=== PATIENT | female | born 1945 | race Caucasian/White ===

== ENCOUNTER 2020-12-06 16:52 | Outpatient (CLI) | payer MEDICARE, OTHER, SELFPAY ==
[2020-12-06 17:28] LABS: Basophils % 0.4 %; Eosinophils # 0.2 10^3/uL (0.0-0.8); Eosinophils % 2.1 %; Hematocrit 42.6 % (37.0-47.0); Lymphocytes # 3.3 10^3/uL (0.8-4.8); Lymphocytes % 30.1 %; Mean Corpuscular HGB Conc 32.9 g/dL (30.0-36.0); Mean Corpuscular Hemoglobin 30.6 pg (28.0-34.0); Mean Corpuscular Volume 93.2 fl (81-99); Mean Platelet Volume 11.2 fL (7.4-10.4); Monocytes # 0.9 10^3/uL (0.2-0.9); Monocytes % 8.1 %; Neutrophils # 6.53 10^3/uL (1.8-7.7); Nucleated Red Blood Cells % 0 %; Platelet Count 290 10^3/cmm (130-400); Red Blood Count 4.57 10^6/uL (4.1-5.3); Red Cell Distribution Width 13.2 % (12.1-15.1); White Blood Count 11.1 10^3/uL (4.0-10.0)
[2020-12-06 20:44] LABS: Alanine Aminotransferase 27 U/L (0-33); Albumin Level 4.1 g/dL (3.5-5.2); Alkaline Phosphatase 88 IU/L (35-105); Anion Gap 19.4 (5-19); Aspartate Amino Transferase 34 U/L (0-32); Blood Urea Nitrogen 11 mg/dL (8-23); Calcium 8.9 mg/dL (8.5-10.5); Carbon Dioxide 20 mmol/L (22-29); Chloride 105 mmol/L (98-107); Glucose 94 mg/dL (65-115); Osmolality Calculated 291 mOsm/kg (285-295); Potassium 3.4 mmol/L (3.5-5.1); Sodium 141 mmol/L (136-145); Total Bilirubin 0.3 mg/dL (0.15-1.2); Total Protein 8.1 g/dL (6.6-8.7)
== END 2020-12-06 16:53 | disposition home or self-care (01) ==
LOC: LAB 17:01
PROVIDERS: PCP Family Medicine; Visit Provider Family Medicine
DX: R10.32 Left lower quadrant pain (principal)
CPT/HCPCS: 80053; 85025

== ENCOUNTER 2020-12-14 08:51 | Outpatient (CLI) | payer MEDICARE, OTHER, SELFPAY ==
--- NOTE | 2020-12-14 08:57 | CT_ITS ---
WS: [id number] CT ABDOMEN AND PELVIS WITH CONTRAST HISTORY: ABDOMINAL PAIN, LEFT LOWER QUADRANT TECHNIQUE: Imaging performed of the abdomen and pelvis with IV contrast. Single phase imaging of the abdomen. Coronal and sagittal reformats are submitted. All CT scans at [facility] use at [address] one of these dose optimization techniques: automated exposure control; mA and/or kV adjustment per patient size (includes targeted exams where dose is matched to clinical indication); or iterative re construction. IV CONTRAST: Omnipaque 300; 95 mL IV. Oral contrast: Yes. DLP: 1061.39 mGycm COMPARISON: 11/05/2006 Lower thorax: Mild dependent changes at the lung bases. Heart is normal size. Small hiatal hernia. Liver/biliary system: Normal size with no intrahepatic dilatation. Gallbladder: Normal. No gallstones or wall thickening. No pericholecystic fluid. Pancreas: Normal size pancreas and pancreatic duct. No adjacent inflammation. Spleen: Normal size spleen. There are a few hypoechoic nodules within the spleen. The largest measure s 13 mm in diameter and is slightly increased in size since the prior examination. Some of the previo usly described nodules are not evident. Adrenal glands: Normal. Right kidney: Normal. Left kidney: Normal. Aorta: Mild atherosclerosis with no aneurysm. Lymphadenopathy: None. Free fluid: None. GI tract: Prior appendectomy. No GI tract obstruction. There is thickening of the cecal wall which ma y in part be due to underdistention. There is additional mild fluid distention of the colon. No signi ficant diverticular disease and no obstructive pattern. Abdominal wall: Fat containing umbilical hernia. Pelvis: Prior hysterectomy. No pelvic mass. Minimally distended urinary bladder. Bones: Unremarkable. CT/CT abdomen pelvis w con* [id number] IMPRESSION: 1. Circumferential thickening of the cecum and part be due to underdistention. No adjacent inflammation and no discrete mass. Infiltrating process such as ly mphoma should be considered. No adenopathy identified. If colonoscopy has not b een performed recently recommend colonoscopy for further evaluation. 2. No significant diverticular disease or obstructive pattern. 3. Prior hysterectomy and appendectomy.
[2020-12-14] MEDS: iohexol 300 mg/mL 50 mL Btl PO (09:08)
[2020-12-14] MEDS: iohexol 300 mg/mL 100 mL Btl IV (10:38)
== END 2020-12-14 08:52 | disposition home or self-care (01) ==
PROVIDERS: PCP Family Medicine; Visit Provider Family Medicine
DX: R10.32 Left lower quadrant pain (principal); Z90.710 Acquired absence of both cervix and uterus; Q42.8 Congenital absence, atresia and stenosis of other parts of large intestine
CPT/HCPCS: 74177; Q9967

== ENCOUNTER 2021-02-08 13:16 | Outpatient (CLI) | payer MEDICARE, OTHER, SELFPAY ==
--- NOTE | 2021-02-08 13:22 | XR_ITS ---
WS: [id number] CHEST 2 VIEWS HISTORY: CHEST PAIN COMPARISON: 02/22/2017 Lungs: Hyperinflated lungs. New diffuse interstitial thickening and reticulations throughout the mid and lower lung lamar. There is mild diffuse haziness over both lungs which has progressed. No dense area of consolidation. No pleural effusion or pneumothorax. Cardiac size: Normal. Mediastinum/Aorta: Mild atherosclerosis aorta. Bones: Osteopenia. XR/XR chest 2V* [id number] IMPRESSION: 1. New diffuse interstitial thickening and fine reticulations within both lung s. Most consistent with acute pneumonitis. No focal area of pneumonia. 2. Pulmonary hyperinflation. Suspect emphysema.
== END 2021-02-08 13:17 | disposition home or self-care (01) ==
PROVIDERS: PCP Family Medicine; Visit Provider Family Medicine
DX: R07.9 Chest pain, unspecified (principal)
CPT/HCPCS: 71046

== ENCOUNTER 2021-02-14 09:15 | Outpatient (CLI) | payer MEDICARE, OTHER, SELFPAY ==
[2021-02-14 09:39] VITALS: BP 122/74; PULSE 72; RESP 24; TEMP 36.6; O2SAT 96; BMI 27.4
[2021-02-14 10:09] VITALS: BP 124/71; PULSE 63; RESP 20; TEMP 36.8; O2SAT 97
[2021-02-14 11:04] VITALS: BP 122/73; PULSE 63; RESP 18; TEMP 36.4; O2SAT 94
== END 2021-02-14 11:05 | disposition home or self-care (01) ==
LOC: OPS 09:17
PROVIDERS: PCP Family Medicine; Visit Provider Family Medicine
DX: U07.1 COVID-19 (principal)
CPT/HCPCS: 96365

== ENCOUNTER 2021-02-19 09:51 | Emergency (ER) | payer MEDICARE, OTHER, SELFPAY ==
[2021-02-19 10:08] VITALS: BP 106/69; PULSE 93; RESP 14; TEMP 37.5; O2SAT 91; BMI 26.9
--- NOTE | 2021-02-19 10:24 | XRR_ITS ---
PROCEDURE INFORMATION: Exam: XR Chest Exam date and time: 02/19/2021 10:24 AM Age: 75 years old Clinical indication: Pain; Right-sided; Additional info: Chest pain, covid TECHNIQUE: Imaging protocol: XR of the chest. Views: 1 view. COMPARISON: CR XR chest 2V* [id number] 02/08/2021 1:29 PM FINDINGS: Lungs: No significant interval change in the appearance of coarsened interstitial markings throughout the right lung, predominantly peripherally, and to a lesser extent at the left lung base. No lobar consolidation. Pleural spaces: Mild blunting of the costophrenic angles appears increased from prior; small effusions not excluded. No visible pneumothorax. Heart/Mediastinum: Unremarkable. No cardiomegaly. Bones/joints: Unremarkable. XR/XR chest 1V portable [id number] IMPRESSION: 1. No significant interval change in the appearance of coarsened interstitial markings throughout the right lung and to lesser extent at the left lung base. Suspect underlying bronchiectasis, although superimposed infectious or inflammatory airways process is not excluded. No lobar consolidation. 2. Small pleural effusions not excluded.
--- NOTE | 2021-02-19 10:25 | ECG_ITS ---
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 Measurements Intervals [place] Rate: 82 P: 53 RI: 158 QRS: 9 QRSD: 99 T: 29 QT: 377 QTc: 442 Interpretive Statements SINUS RHYTHM Compared to ECG 02/22/2017 12:07:36 No significant changes Electronically Signed On 02-21-2021 5:06:31 MULTILITH OPERATOR by Pearl Stanford M.D. [id number]
--- NOTE | 2021-02-19 12:47 | W.ED.COVID ---
HPI - COVID General: Chief Complaint: COVID symptoms Stated Complaint: COVID+, SOB, CP Time Seen by Provider: 02/19/21 12:47 Triage information: Has fever, cough or shortness of breath. Exposure to COVID + person last 14 days History of Present Illness: HPI Narrative: Ms. Orosco is a 75-year-old lady without significant past medical history who presents to the emergency department due to chest pain and shortness of breath. She reports being known Covid positive testing positive last Saturday and receiving monoclonal antibody infusion approximately 5 days ago. Prior to testing positive symptoms were present for approximately 1 week. She had fairly typical Covid symptoms however she presents today due to sharp right anterior chest pain in the lower lamar. She reports that this is a new symptom. Symptoms are worse with deep breaths and movement. Mild increased shortness of breath. Denies similar episodes in the past. Overall the course of symptoms has been worsening. No other specific changes in health, exacerbating, relieving factors identified. complaint: known COVID positive Prior covid testing: yes, results pending at other location Prior testing date: 02/13/21 COVID 19 common symptoms: positive fever(s), chills, cough, dyspnea, fatigue, body aches and nasal congestion COVID 19 other sytmptoms: positive chest pain Onset (ago): week(s) Severity: moderate Treatment prior to arrival: monocloncal antibody COVID Results: No Data to Display Review of Systems General: Reports: 10 or more systems reviewed and unremarkable except in HPI and below Const: Reports: fever(s), chills, body aches and fatigue ENMT: Reports: nasal congestion Card: Reports: chest pain Resp: Reports: dyspnea PFSH ED PFSH: Medical History COVID-19 No significant past medical history Surgical History H/O: hysterectomy Social History Smoking and tobacco status: never smoked Alcohol intake: never Physical Exam Const: COMMON NORMALS: alert GENERAL APPEARANCE: cooperative, well developed and in distress (Mild, due to pain) HENMT: COMMON NORMALS: normocephalic and atraumatic HEAD & SCALP: normocephalic and atraumatic THROAT: posterior oropharynx normal Eye: COMMON NORMALS: conjunctivae normal CONJUNCTIVA: Yes conjunctivae normal SCLERA: sclerae normal Neck/C-Spine: COMMON NORMALS: supple GENERAL: Yes trachea midline Resp: EFFORT & INSPECTION: Yes able to speak in complete sentences and Yes tachypneic OTHER: Pain with deep inspiration Cardio: COMMON NORMALS: regular rate and regular rhythm RATE: regular rate RHYTHM: regular rhythm GI: COMMON NORMALS: Soft to palpation PALPATION: Yes Soft to palpation and No Tenderness to palpation present (GI) PERCUSSION: normal to percussion Extremity: GENERAL: Yes normal exam except as noted and No edema Neuro: COMMON NORMALS: moves all extremities SENSORIUM/ORIENTATION: Yes alert and No Orientation impaired Psych: COMMON NORMALS: mental status grossly normal and Normal thought process present THOUGHT PROCESS: Normal thought process present Course ED course: - Patient was seen and evaluated by me at bedside - Patient placed on cardiac monitors, IV access obtained - Initial evaluation notable for exam as above -Symptom treatment ordered - Labs notable for leukocytosis, likely multifactorial possibly contributed to by dexamethasone. Metabolic panel with mild evidence of dehydration. Negative delta troponin. Negative procalcitonin. D-dimer is elevated (patient cannot be PERCed out due to age.) - Imaging notable for findings likely related to bronchiectasis/COVID. CTA negative for pulmonary embolism. - Upon serial reexamination after treatment the patient was improved - Based on patient history, evaluation, labs, and imaging as interpreted the most likely cause of the patient's condition is COVID-19 - The results of ED evaluation were discussed with the patient including prescriptions and/or symptomatic cares (if applicable) including appropriate and responsible use, followup plan, and return precautions. The patient verbalized understanding and felt safe for discharge. - Patient discharged in satisfactory condition. Note: Click bubbles or prepopulated lamar in note writing are used for assistance with data collection and billing and are inherently more limited than narrative and other text portions of this note. Please use narrative for additional clinical history and defer to narrative/free test for any case of contradictory information. If information appears in only free text or click bubble it should be considered present or absent as reported. Please contact note health technical writer for clarifications of clinical information or contradictory information. MDM is a brief summary, contradictory or erroneous seeming information should be clarified and full note leta Vital Signs: Vital signs: Vital Signs Temperature 99.0 F 02/19/21 17:27 Pulse Rate 90 02/19/21 17:27 Respiratory Rate 16 02/19/21 17:27 Blood Pressure 109/68 02/19/21 17:27 Pulse Oximetry 94 02/19/21 17:27 MDM - COVID MDM Narrative: Medical decision making narrative: 75-year-old lady with known COVID presenting with chest discomfort that is pleuritic in nature. CTA negative, procalcitonin negative. Improved with symptom treatment. Satisfactory for discharge. Medical Records: Attestation: I reviewed the patient's medical records. Lab Data: Attestation: I reviewed the patient's lab results. Labs: Lab Results 02/19/21 02/19/21 02/19/21 13:17 13:17 13:17 WBC 23.3 10^3/uL H 10 ^3/uL (4.0-10.0) RBC 4.72 10^6/uL 10^6 /uL (4.1-5.3) Hgb 14.1 g/dL g/dL (11.5-15.3) Hct 42.0 % % (37.0-47.0) MCV 89.0 fl fl (81-99) MCH 29.9 pg pg (28.0-34.0) MCHC 33.6 g/dL g/dL (30.0-36.0) RDW 13.2 % % (12.1-15.1) Plt Count 290 10^3/cmm 10^3 /cmm (130-400) MPV 11.5 fL H fL (7.4-10.4) Neut % (Auto) 81.6 % % Lymph % (Auto) 8.0 % % [place] % (Auto) 8.9 % % Eos % (Auto) 0.0 % % Baso % (Auto) 0.2 % % Neut # (Auto) 18.99 10^3/uL H 1 0^3/uL (1.8-7.7) Lymph # (Auto) 1.9 10^3/uL 10^3/ uL (0.8-4.8) [place] # (Auto) 2.1 10^3/uL H 10^ 3/uL (0.2-0.9) Eos # (Auto) 0.0 10^3/uL 10^3/ uL (0.0-0.8) Baso # (Auto) 0.1 10^3/uL 10^3/ uL (0.0-0.1) Nucleated RBC % (a uto) 0 % % Nucleated RBCs # 0.0 /100WBC /100W BC D-Dimer Sodium 138 mmol/L mmol/L (136-145) Potassium 3.8 mmol/L mmol/L (3.5-5.1) Chloride 101 mmol/L mmol/L (98-107) Carbon Dioxide 19 mmol/L L mmol/ L (22-29) Anion Gap 21.8 H (5-19) BUN 15 mg/dL mg/dL (8-23) Creatinine 0.7 mg/dL mg/dL (0.5-0.9) GFR Calculation Not Reportable Glucose 99 mg/dL mg/dL (65-115) Calculated Osmolal ity 287 mOsm/kg mOsm/ kg (285-295) Calcium 9.0 mg/dL mg/dL (8.5-10.5) Total Bilirubin 0.9 mg/dL mg/dL (0.15-1.2) AST 16 U/L U/L (0-32) ALT 24 U/L U/L (0-33) Alkaline Phosphata se 98 IU/L IU/L (35-105) Troponin T Baselin e 8 ng/L ng/L (0-10) Troponin T 120 Min [place] Troponin T C-Reactive Protein NT-Pro-B Natriuret Pep Total Protein 7.1 g/dL g/dL (6.6-8.7) Albumin 3.8 g/dL g/dL (3.5-5.2) Globulin 3.3 g/dL g/dL (1.3-4.6) Procalcitonin 02/19/21 02/19/21 02/19/21 13:17 13:17 13:17 WBC RBC Hgb Hct MCV MCH MCHC RDW Plt Count MPV Neut % (Auto) Lymph % (Auto) [place] % (Auto) Eos % (Auto) Baso % (Auto) Neut # (Auto) Lymph # (Auto) [place] # (Auto) Eos # (Auto) Baso # (Auto) Nucleated RBC % (a uto) Nucleated RBCs # D-Dimer 1.19 ug/mIFEU H u g/mIFEU (0-0.59) Sodium Potassium Chloride Carbon Dioxide Anion Gap BUN Creatinine GFR Calculation Glucose Calculated Osmolal ity Calcium Total Bilirubin AST ALT Alkaline Phosphata se Troponin T Baselin e Troponin T 120 Min [place] Troponin T C-Reactive Protein 229.9 mg/L H mg/L (0.0-4.9) NT-Pro-B Natriuret Pep 286 pg/mL pg/mL (0-450) Total Protein Albumin Globulin Procalcitonin 0.22 ng/mL ng/mL (0-0.5) 02/19/21 16:22 WBC RBC Hgb Hct MCV MCH MCHC RDW Plt Count MPV Neut % (Auto) Lymph % (Auto) [place] % (Auto) Eos % (Auto) Baso % (Auto) Neut # (Auto) Lymph # (Auto) [place] # (Auto) Eos # (Auto) Baso # (Auto) Nucleated RBC % (a uto) Nucleated RBCs # D-Dimer Sodium Potassium Chloride Carbon Dioxide Anion Gap BUN Creatinine GFR Calculation Glucose Calculated Osmolal ity Calcium Total Bilirubin AST ALT Alkaline Phosphata se Troponin T Baselin e Troponin T 120 Min [place] 7.95 ng/L ng/L (0-10) Delta Troponin T -0.05 ABS# L ABS# (0-10) C-Reactive Protein NT-Pro-B Natriuret Pep Total Protein Albumin Globulin Procalcitonin EKG Data: EKG 1: Attestation: I personally reviewed and interpreted this EKG as follows: EKG interpretation date: 02/19/21 EKG interpretation time: 13:01 Interpretation: Twelve-lead EKG shows a sinus rhythm at a rate of 82. IL interval 158. QRS duration 99. QTc 416. Regular [place]. Interpretation: Sinus rhythm. Nonspecific ST segment abnormalities.. COVID Results: No Data to Display Discharge Plan Discharge Patient Disposition: Home Clinical Impression: Chest pain, COVID-19 Condition: Stable Prescriptions: No Action azithromycin 250 mg tablet See Rx Instructions .ROUTE .COMPLEX RF: 0 dexamethasone 6 mg tablet 6 mg PO DAILY RF: 0 omeprazole 40 mg capsule,delayed release(DR/EC) 40 mg PO BID RF: 0 aspirin 81 mg tablet,delayed release (DR/EC) 81 mg PO DAILY RF: 0 zinc gluconate 50 mg tablet 50 mg PO DAILY RF: 0 cholecalciferol (vitamin D3) 50 mcg (2,000 unit) capsule 50 mcg PO DAILY RF: 0 acetaminophen 500 mg tablet 500 mg PO Q6H PRN (Reason: pain) 5 Days Qty: 20 RF: 0 Zithromax TRI-JANA 500 mg tablet See Rx Instructions .ROUTE .COMPLEX Qty: 3 RF: 0 potassium chloride 10 mEq capsule, extended release 10 meq PO DAILY 5 Days Qty: 5 RF: 0 Discharge Orders: Discharge ED (Routine); Ordered 02/19/21 Ordered By: Duane Young Referrals: Homero Mesa MD [Primary Care Provider] - Discharge Diet: Usual diet Discharge Activity: Resume usual activity Patient Instructions: Chest Pain (ED), COVID-19 (Coronavirus Disease 2019) (ED) Activity Restrictions/Additional Instructions: Thank you for visiting the emergency department. You were seen and evaluated for chest pain in the context of Covid. The exact cause of your symptoms is unclear though likely related to Covid. We did not see evidence of heart attack or blood clot in your lungs. You did have an elevated white blood cell count however this may be due to steroid use, please continue to take all previously prescribed medications. You may use [id number] medications for symptoms however please do not exceed the daily recommended dosage. Please follow-up with your primary care provider. Once your Covid symptoms resolve you may need outpatient cardiology testing if you have not recently had any. Return to the emergency department for worsening symptoms or anything else that you are concerned about and feel needs emergency department evaluation. Coding Level of Care Code ED Machine Iii Coremaker for [facility] Comprehensive
[2021-02-19 13:22] VITALS: O2SAT 90
[2021-02-19 13:32] LABS: Basophils # 0.1 10^3/uL (0.0-0.1); Basophils % 0.2 %; Hemoglobin 14.1 g/dL (11.5-15.3); Lymphocytes # 1.9 10^3/uL (0.8-4.8); Mean Corpuscular HGB Conc 33.6 g/dL (30.0-36.0); Mean Corpuscular Hemoglobin 29.9 pg (28.0-34.0); Mean Platelet Volume 11.5 fL (7.4-10.4); Monocytes # 2.1 10^3/uL (0.2-0.9); Monocytes % 8.9 %; Neutrophils # 18.99 10^3/uL (1.8-7.7); Neutrophils % 81.6 %; Nucleated Red Blood Cells % 0 %; Platelet Count 290 10^3/cmm (130-400); Red Blood Count 4.72 10^6/uL (4.1-5.3); Red Cell Distribution Width 13.2 % (12.1-15.1); White Blood Count 23.3 10^3/uL (4.0-10.0)
[2021-02-19 13:46] LABS: D Dimer 1.19 ug/mIFEU (0-0.59)
[2021-02-19 13:54] LABS: Alanine Aminotransferase 24 U/L (0-33); Albumin Level 3.8 g/dL (3.5-5.2); Alkaline Phosphatase 98 IU/L (35-105); Aspartate Amino Transferase 16 U/L (0-32); Blood Urea Nitrogen 15 mg/dL (8-23); C Reactive Protein 229.9 mg/L (0.0-4.9); Carbon Dioxide 19 mmol/L (22-29); Chloride 101 mmol/L (98-107); Globulin 3.3 g/dL (1.3-4.6); Glucose 99 mg/dL (65-115); Osmolality Calculated 287 mOsm/kg (285-295); Sodium 138 mmol/L (136-145); Total Bilirubin 0.9 mg/dL (0.15-1.2); Total Protein 7.1 g/dL (6.6-8.7)
[2021-02-19 13:55] LABS: Troponin(5th) Baseline 8 ng/L (0-10)
[2021-02-19 13:57] LABS: Anion Gap 21.8 (5-19); Potassium 3.8 mmol/L (3.5-5.1)
--- NOTE | 2021-02-19 13:57 | CTR_ITS ---
PROCEDURE INFORMATION: Exam: CTA Chest With Contrast Exam date and time: 02/19/2021 1:57 PM Age: 75 years old Clinical indication: Shortness of breath; Additional info: SOB, chest pain, elevated ddimer TECHNIQUE: Imaging protocol: Computed tomographic angiography of the chest with contrast. 3D rendering (Not supervised by radiologist): MIP and/or 3D reconstructed images were created by the technologist. Total images: [id number] Radiation optimization: All CT scans at this facility use at least one of these dose optimization techniques: automated exposure control; mA and/or kV adjustment per patient size (includes targeted exams where dose is matched to clinical indication); or iterative reconstruction. Contrast material: OMNI 350; Contrast volume: 70 ml; Contrast route: INTRAVENOUS (IV); COMPARISON: CTA Chest-Pulmonary Emb [id number] 06/05/2015 5:02 PM RADIATION DOSE METRICS: Total DLP (mGy-cm): 552.93 FINDINGS: Pulmonary arteries: No visible evidence of pulmonary embolism/pulmonary arterial thrombus. Aorta: The thoracic aorta is nonaneurysmal. No visible intimal flap or dissection. Mild arterial sclerotic disease. Lungs: Bilateral, predominantly peripheral, patches of ground-glass interstitial lung disease opacification consistent with active interstitial pneumonitis. Overall constellation of findings would be consistent with Covid-19 pneumonitis. Mild dependent atelectasis lung bases. Pleural spaces: Scant right pleural effusion. Heart: Cardiac size within normal limits for age. Mild left ventricular prominence. No visible pericardial effusion. No visible significant coronary artery disease. Lymph nodes: Prominent mediastinal and hilar lymph nodes most likely reactive in nature. Rare calcified complex of antecedent granulomatous disease. No visible axillary lymphadenopathy. Bones/joints: No visible acute osseous abnormality. Mild scoliotic curvature of the spine. Soft tissues: Unremarkable. CT/CT angio chest PE protcl [id number] IMPRESSION: 1. No visible evidence of pulmonary embolism/pulmonary arterial thrombus. 2. Bilateral, predominantly peripheral, patches of ground-glass interstitial lung disease opacification consistent with active interstitial pneumonitis. Overall constellation of findings would be consistent with Covid-19 pneumonitis. 3. Scant right pleural effusion. 4. Prominent mediastinal and hilar lymph nodes most likely reactive in nature.
[2021-02-19 13:59] LABS: Procalcitonin 0.22 ng/mL (0-0.5)
[2021-02-19] MEDS: sodium chloride 0.9% 500 ML 999 ML IV (14:02)
[2021-02-19] MEDS: acetaminophen 500 mg Tablet 1000 MG PO (15:00)
[2021-02-19] MEDS: ketorolac 30 mg/mL INJ 15 MG IVP (15:01)
[2021-02-19] MEDS: iohexol 350 mg/mL 100 mL Btl IV (16:04)
[2021-02-19 16:50] LABS: NT Pro B Type Natriuretic Pept 286 pg/mL (0-450)
[2021-02-19 16:53] VITALS: O2SAT 92; O2SAT 94
[2021-02-19 17:10] VITALS: BP 109/68; PULSE 93; RESP 16; TEMP 37.2; O2SAT 94
[2021-02-19 17:11] LABS: Troponin 5 2HR 7.95 ng/L (0-10)
[2021-02-19 17:19] LABS: Troponin 5 2HR Delta -0.05 ABS# (0-10)
[2021-02-19 17:27] VITALS: BP 109/68; PULSE 90; RESP 16; TEMP 37.2; O2SAT 94
== END 2021-02-19 17:30 | disposition home or self-care (01) ==
PROVIDERS: Emergency Provider Emergency Medicine; PCP Family Medicine
DX: U07.1 COVID-19 (principal)
CPT/HCPCS: 36415; 71045; 71275; 80053; 83880; 84145; 84484; 85025; 85378; 86140; 93005; 96374; 99283; J1885; J7040; Q9967

== ENCOUNTER 2021-02-24 10:21 | Emergency (ER) | payer MEDICARE, OTHER, SELFPAY ==
--- NOTE | 2021-02-24 10:53 | XR_ITS ---
WS: [id number] XR chest 1V portable [id number] REASON FOR EXAM: covid FINDINGS: Compared to previous examination of 02/19/2021, there is an increased amount of pleural fluid and an in crease in the groundglass and reticular opacities in the periphery and lower portion of the right alecia g field. There is an increase in the reticular opacities in the left lower lung compared to the previ ous examination. There may be a small left pleural effusion. No new findings. XR/XR chest 1V portable [id number] IMPRESSION: Progression of radiographic abnormality in both hemithoraces as above.
[2021-02-24 10:59] VITALS: BP 109/71; PULSE 87; RESP 20; TEMP 36.7; O2SAT 92; BMI 26.9
--- NOTE | 2021-02-24 12:22 | ED_ITS ---
HPI - COVID General: Chief Complaint: COVID symptoms Stated Complaint: COVID + SOB, NO APPETITE, WEAKNESS Time Seen by Provider: 02/24/21 11:02 Triage information: Has fever, cough or shortness of breath . Exposure to COVID + person last 14 days History of Present Illness: COVID 19 common symptoms: negative fever(s), chills, non-productive cough, dyspnea, nausea, vomiting or diarrhea COVID 19 other sytmptoms: negative chest pain COVID Results: No Data to Display Review of Systems Const: Denies: fever(s) or chills Eyes: Denies: change in vision ENMT: Denies: mouth pain Card: Denies: chest pain or palpitations Resp: Denies: dyspnea or non-productive cough GI: Denies: abdominal pain, nausea, vomiting or diarrhea : Denies: dysuria Musc: Denies: extremity pain Skin/Breast: Denies: rash or new lesions Neuro: Denies: weakness in extremities Psych: Reports: other (Normal mood) Dennis/Lymph: Denies: easy bruising PFSH ED PFSH: Medical History No significant past medical history Surgical History H/O: hysterectomy Social History (System 02/23/21 @ 10:16 by Justyna Curiel) Smoking and tobacco status: never smoked Physical Exam Const: COMMON NORMALS: alert HENMT: COMMON NORMALS: atraumatic HEAD & SCALP: atraumatic MOUTH: moist mucous membranes not abnormal Eye: COMMON NORMALS: EOMs intact bilaterally and conjunctivae normal CONJUNCTIVA: Yes conjunctivae normal Neck/C-Spine: COMMON NORMALS: full ROM and supple Resp: COMMON NORMALS: normal respiratory effort and clear to auscultation bilaterally AUSCULTATION: clear to auscultation bilaterally Cardio: COMMON NORMALS: regular rate RATE: regular rate GI: COMMON NORMALS: Soft to palpation and non-tender PALPATION: Yes Soft to palpation Extremity: COMMON NORMALS: full ROM Neuro: SENSORIUM/ORIENTATION: Yes alert MOTOR EXAM: No Abnormal motor strength present and Other motor observations present (no focal motor deficits) Psych: COMMON NORMALS: speech normal SPEECH: Yes normal speech MOOD & AF FECT: Yes euthymic mood Course Vital Signs: Vital signs: Vital Signs Temperature 98.0 F 02/24/21 10:59 Pulse Rate 87 02/24/21 10:59 Respiratory Rate 20 H 02/24/21 10:59 Blood Pressure 109/71 02/24/21 10:59 Pulse Oximetry 92 02/24/21 10:59 MDM - COVID COVID Results: No Data to Display Discharge Plan Discharge Patient Disposition: Home Clinical Impression: Cough, 2019 novel coronavirus-infected pneumonia (NCIP) Condition: Stable Prescriptions: New acetaminophen 500 mg tablet 500 mg PO Q6H PRN (Reason: pain) 5 Days Qty: 20 RF: 0 Zithromax TRI-JANA 500 mg tablet See Rx Instructions .ROUTE .COMPLEX Qty: 3 RF: 0 No Action azithromycin 250 mg tablet See Rx Instructions .ROUTE .COMPLEX RF: 0 dexamethasone 6 mg tablet 6 mg PO DAILY RF: 0 omeprazole 40 mg capsule,delayed release(DR/EC) 40 mg PO BID RF: 0 aspirin 81 mg tablet,delayed release (DR/EC) 81 mg PO DAILY RF: 0 zinc gluconate 50 mg tablet 50 mg PO DAILY RF: 0 cholecalciferol (vitamin D3) 50 mcg (2,000 unit) capsule 50 mcg PO DAILY RF: 0 Referrals: Homero Mesa MD [Primary Care Provider] - Discharge Diet: Advance as tolerated Discharge Activity: Resume usual activity Patient Instructions: COVID-19 (Coronavirus Disease 2019) (ED) Activity Restrictions/Additional Instructions: Come back to the emergency room if your symptoms worsen, have any shortness of breath, fever/chills, dehydration, inability tolerate p.o., any difficulty breathing, or any new or concerning complaints. Please return the emergency room if your pulse ox reads less than 88%. Coding Level of Care Code ED Bottoming Room Supervisor for [facility] Exam Comprehensive
[2021-02-24 12:57] VITALS: O2SAT 88; O2SAT 91; O2SAT 92
--- NOTE | 2021-02-24 13:13 | ED_ITS ---
HPI - General Adult General: Chief complaint: COVID symptoms Stated complaint: COVID + SOB, NO APPETITE, WEAKNESS Time Seen by Provider: 02/24/21 11:02 History of Present Illness: HPI narrative: CC: Shortness of breath, fever and generalized weakness HPI: This is a [75]yo patient w/ hx of COVID diagnosed 11 daysago presenting to the ED with malaise, generalized weakness, cough sputum production, and fever at home since then. Patient was seen and evaluated on 02/19/2021 and had CTA test negative for PE. Patient continues to complains of similar pleuritic chest pain, dyspne and cough since 02/19. Patient is worried that I have pneumonia now and is requesting for antibiotics. Onset: 11 days ago Duration: ongoing for the last 11 days Location: home Severity: mild/moderate Associated symptoms: Reports dyspnea and nausea; Deny chest pain, rash, palpitations or vomiting Review of Systems Const: Reports: chills; Denies: fever(s) Eyes: Denies: change in vision ENMT: Denies: mouth pain Card: Denies: chest pain or palpitations Resp: Reports: dyspnea and non-productive cough GI: Reports: nausea and other (decreased po intake); Denies: abdominal pain, vomiting or diarrhea : Denies: dysuria Musc: Denies: extremity pain Skin/Breast: Denies: rash or new lesions Neuro: Denies: weakness in extremities Psych: Reports: other (Normal mood) Dennis/Lymph: Denies: easy bruising PFSH ED PFSH: Medical History COVID-19 No significant past medical history Surgical History H/O: hysterectomy Social History Smoking and tobacco status: never smoked Alcohol intake: never Substance/Drug Use: never Physical Exam Const: COMMON NORMALS: alert HENMT: COMMON NORMALS: atraumatic HEAD & SCALP: atraumatic MOUTH: moist mucous membranes not abnormal Eye: COMMON NORMALS: EOMs intact bilaterally and conjunctivae normal CONJUNCTIVA: Yes conjunctivae normal Neck/C-Spine: COMMON NORMALS: full ROM and supple Resp: COMMON NORMALS: normal respiratory effort AUSCULTATION: other (coarse breath sounds b/l) Cardio: COMMON NORMALS: regular rate RATE: regular rate GI: COMMON NORMALS: Soft to palpation and non-tender PALPATION: Yes Soft to palpation Extremity: COMMON NORMALS: full ROM Neuro: SENSORIUM/ORIENTATION: Yes alert MOTOR EXAM: No Abnormal motor strength present and Other motor observations present (no focal motor deficits) Psych: COMMON NORMALS: speech normal SPEECH: Yes normal speech MOOD & AFFECT: Yes euthymic mood Course Vital Signs: Vital signs: Vital Signs Temperature 98.0 F 02/24/21 10:59 Pulse Rate 87 02/24/21 10:59 Respiratory Rate 17 02/24/21 13:50 Blood Pressure 109/71 02/24/21 10:59 Pulse Oximetry 93 02/24/21 13:50 MDM - General Adult MDM Narrative: Medical decision making narrative: [75]yo patient presenting to the ED with shortness of breath, cough, and malaise with pleuritic chest pain non-improving. Given History, Exam, and Workup presentation most consistent w/ covid pneumonia. Presentation not consistent with PE, COPD exacerbation, Pneumothorax, TB, Atypical ACS, Esophageal Rupture, Toxic Exposure, Foreign Body Airway Obstruction. Workup: XR Chest, CBC, BMP Intervention: Morphine and ceftriaxone 1g [1:45pm] On reassessment, showed worsening lung opacity. Patient has had home oxygen evaluation and requires 2 L oxygen to go home with. I have given patient strict return precaution for any drops in the pulse ox to less than 88% while on oxygen. Patient received 1 g ceftriaxone in the emergency room and morphine for pain. K of 3.1, s/p po potassium. Rx: Tylenol 500mg Q6HRs PRN fever/pain, Z-jana pna Disposition: Discharge. Strict return instructions discussed at bedside including any signs of respiratory distress, dehydration, persistent fever, or any new or concerning symptoms. Patient in agreement with the plan and reassures me that the patient will follow up a primary care provider in 24-48 hrs for revaluation. Lab Data: Labs: Lab Results 02/24/21 02/24/21 13:20 13:20 WBC 22.3 10^3/uL H 10 ^3/uL (4.0-10.0) RBC 4.37 10^6/uL 10^6 /uL (4.1-5.3) Hgb 13.3 g/dL g/dL (11.5-15.3) Hct 40.7 % % (37.0-47.0) MCV 93.1 fl fl (81-99) MCH 30.4 pg pg (28.0-34.0) MCHC 32.7 g/dL g/dL (30.0-36.0) RDW 13.9 % % (12.1-15.1) Plt Count 261 10^3/cmm 10^3 /cmm (130-400) MPV 12.6 fL H fL (7.4-10.4) Neut % (Auto) 81.6 % % Lymph % (Auto) 10.6 % % [place] % (Auto) 6.6 % % Eos % (Auto) 0.1 % % Baso % (Auto) 0.3 % % Neut # (Auto) 18.22 10^3/uL H 1 0^3/uL (1.8-7.7) Lymph # (Auto) 2.4 10^3/uL 10^3/ uL (0.8-4.8) [place] # (Auto) 1.5 10^3/uL H 10^ 3/uL (0.2-0.9) Eos # (Auto) 0.0 10^3/uL 10^3/ uL (0.0-0.8) Baso # (Auto) 0.1 10^3/uL 10^3/ uL (0.0-0.1) Nucleated RBC % (a uto) 0 % % Nucleated RBCs # 0.0 /100WBC /100W BC Sodium 134 mmol/L L mmol /L (136-145) Potassium 3.1 mmol/L L mmol /L (3.5-5.1) Chloride 96 mmol/L L mmol/ L (98-107) Carbon Dioxide 22 mmol/L mmol/L (22-29) Anion Gap 19.1 H (5-19) BUN 13 mg/dL mg/dL (8-23) Creatinine 0.7 mg/dL mg/dL (0.5-0.9) GFR Calculation Not Reportable Glucose 91 mg/dL mg/dL (65-115) Calculated Osmolal ity 278 mOsm/kg L mOs m/kg (285-295) Calcium 8.6 mg/dL mg/dL (8.5-10.5) Total Bilirubin 0.6 mg/dL mg/dL (0.15-1.2) AST 26 U/L U/L (0-32) ALT 26 U/L U/L (0-33) Alkaline Phosphata se 171 IU/L H IU/L (35-105) C-Reactive Protein 676.1 mg/L H mg/L (0.0-4.9) Total Protein 8.2 g/dL g/dL (6.6-8.7) Albumin 3.3 g/dL L g/dL (3.5-5.2) Globulin 4.9 g/dL H g/dL (1.3-4.6) Lipase 24 U/L U/L (13-60) Procalcitonin 0.29 ng/mL ng/mL (0-0.5) Discharge Plan Discharge Patient Disposition: Home Clinical Impression: Cough, 2019 novel coronavirus-infected pneumonia (NCIP), Acute hypokalemia Condition: Stable Prescriptions: New acetaminophen 500 mg tablet 500 mg PO Q6H PRN (Reason: pain) 5 Days Qty: 20 RF: 0 Zithromax TRI-JANA 500 mg tablet See Rx Instructions .ROUTE .COMPLEX Qty: 3 RF: 0 potassium chloride 10 mEq capsule, extended release 10 meq PO DAILY 5 Days Qty: 5 RF: 0 No Action azithromycin 250 mg tablet See Rx Instructions .ROUTE .COMPLEX RF: 0 dexamethasone 6 mg tablet 6 mg PO DAILY RF: 0 omeprazole 40 mg capsule,delayed release(DR/EC) 40 mg PO BID RF: 0 aspirin 81 mg tablet,delayed release (DR/EC) 81 mg PO DAILY RF: 0 zinc gluconate 50 mg tablet 50 mg PO DAILY RF: 0 cholecalciferol (vitamin D3) 50 mcg (2,000 unit) capsule 50 mcg PO DAILY RF: 0 Discharge Orders: Discharge ED (Routine); Ordered 02/24/21 Ordered By: Jean Pierre Fuller Other Ambulatory Orders: DME: Oxygen (Order) Location: None Selected Ordered By: Jean Pierre Fuller Referrals: Homero Mesa MD [Primary Care Provider] - Discharge Diet: Advance as tolerated Discharge Activity: Resume usual activity Patient Instructions: COVID-19 (Coronavirus Disease 2019) (ED) Activity Restrictions/Additional Instructions: Come back to the emergency room if your symptoms worsen, have any shortness of breath, fever/chills, dehydration, inability tolerate p.o., any difficulty breathing, or any new or concerning complaints. Please return the emergency room if your pulse ox reads less than 88%. Coding Level of Care Code ED Clinical Medical Transcriptionist for [facility] Fwd Exam Comprehensive
[2021-02-24 13:46] LABS: Basophils # 0.1 10^3/uL (0.0-0.1); Basophils % 0.3 %; Eosinophils % 0.1 %; Hematocrit 40.7 % (37.0-47.0); Hemoglobin 13.3 g/dL (11.5-15.3); Lymphocytes # 2.4 10^3/uL (0.8-4.8); Lymphocytes % 10.6 %; Mean Corpuscular HGB Conc 32.7 g/dL (30.0-36.0); Mean Corpuscular Hemoglobin 30.4 pg (28.0-34.0); Mean Corpuscular Volume 93.1 fl (81-99); Mean Platelet Volume 12.6 fL (7.4-10.4); Monocytes # 1.5 10^3/uL (0.2-0.9); Monocytes % 6.6 %; Neutrophils # 18.22 10^3/uL (1.8-7.7); Neutrophils % 81.6 %; Nucleated Red Blood Cells % 0 %; Platelet Count 261 10^3/cmm (130-400); Red Blood Count 4.37 10^6/uL (4.1-5.3); Red Cell Distribution Width 13.9 % (12.1-15.1); White Blood Count 22.3 10^3/uL (4.0-10.0)
[2021-02-24 13:50] VITALS: RESP 17; O2SAT 93
[2021-02-24] MEDS: morphine 4 mg/mL SDV 1 mL 2 MG IVP (13:50)
[2021-02-24] MEDS: cefTRIAXone 1,000 MG in sodium chloride 0.9% (plus) 50 ML 100 MG IV (13:53)
[2021-02-24 14:02] LABS: Alanine Aminotransferase 26 U/L (0-33); Albumin Level 3.3 g/dL (3.5-5.2); Alkaline Phosphatase 171 IU/L (35-105); Anion Gap 19.1 (5-19); Aspartate Amino Transferase 26 U/L (0-32); Blood Urea Nitrogen 13 mg/dL (8-23); Calcium 8.6 mg/dL (8.5-10.5); Carbon Dioxide 22 mmol/L (22-29); Chloride 96 mmol/L (98-107); Globulin 4.9 g/dL (1.3-4.6); Glucose 91 mg/dL (65-115); Lipase 24 U/L (13-60); Osmolality Calculated 278 mOsm/kg (285-295); Potassium 3.1 mmol/L (3.5-5.1); Sodium 134 mmol/L (136-145); Total Bilirubin 0.6 mg/dL (0.15-1.2); Total Protein 8.2 g/dL (6.6-8.7)
[2021-02-24 14:09] LABS: Procalcitonin 0.29 ng/mL (0-0.5)
[2021-02-24 14:14] LABS: C Reactive Protein 676.1 mg/L (0.0-4.9)
[2021-02-24] MEDS: potassium chloride ER 20 mEq Tablet 40 MEQ PO (14:34)
[2021-02-24 15:16] VITALS: O2SAT 91
[2021-02-24 15:34] VITALS: BP 140/74; PULSE 96; RESP 17; O2SAT 92
== END 2021-02-24 15:36 | disposition home or self-care (01) ==
PROVIDERS: Emergency Provider Emergency Medicine; PCP Family Medicine
DX: U07.1 COVID-19 (principal); J12.82 Pneumonia due to coronavirus disease 2019; E87.6 Hypokalemia; Z79.82 Long term (current) use of aspirin
CPT/HCPCS: 71045; 80053; 83690; 84145; 85025; 86140; 96365; 96375; 99284; J0696; J2270

== ENCOUNTER → 2021-05-09 14:53 | Outpatient (BNVA) | payer MEDICARE, OTHER, SELFPAY | PROVIDERS: PCP Family Medicine; Visit Provider Internal Medicine Pulmonary Disease | DX: R05.9 Cough, unspecified (principal); J47.9 Bronchiectasis, uncomplicated; R05.3 Chronic cough; Z86.16 Personal history of COVID-19; R06.02 Shortness of breath | CPT/HCPCS: 36415; 82784; 82785; 85025; 86003; 86038; 86331; 86606; 86609; 87015; 87070; 87116; 87205; 87206; 87801; 99203; 99204 ==

== ENCOUNTER 2021-06-30 09:30 | Outpatient (CLI) | payer MEDICARE, OTHER, SELFPAY ==
--- NOTE | 2021-06-30 10:00 | CTR_ITS ---
PROCEDURE INFORMATION: Exam: CT Chest Without Contrast; Diagnostic Exam date and time: 06/30/2021 9:51 AM Age: 75 years old Clinical indication: Cough; Patient HX: Covid pneumonia fatigue; Additional info: Chronic cough and bronchiectasis; Resolution of covid, high resolution CT chest TECHNIQUE: Imaging protocol: Diagnostic computed tomography of the chest without contrast. Radiation optimization: All CT scans at this facility use at least one of these dose optimization techniques: automated exposure control; mA and/or kV adjustment per patient size (includes targeted exams where dose is matched to clinical indication); or iterative reconstruction. COMPARISON: 1. CT angio chest PE protcl [id number] 02/19/2021 4:01 PM 2. CTA Chest-Pulmonary Emb [id number] 06/05/2015 5:02 PM RADIATION DOSE METRICS: Total DLP (mGy-cm): 2020.64 FINDINGS: Lungs: Small benign left pulmonary hilar calcified lymph nodes are present. There is bilateral pulmonary fibrosis especially on the right side. There is right lung bronchiectasis especially in the right upper lobe and right middle lobe. No new pulmonary infiltrates are seen. Benign calcified granuloma in the left lung. Pleural spaces: Unremarkable. No pneumothorax. No pleural effusion. Heart: The heart is not enlarged. There is mild coronary artery calcification. Lymph nodes: No significant left adenopathy.. Vasculature: The thoracic aorta is calcified. There is no thoracic aortic aneurysm. Spleen: There is a stable 1.5 cm low-density lesion in the spleen which has not changed for many years and is probably a small cyst. Bones/joints: Chronic degenerative changes are present in the spine. No acute bony abnormality. Soft tissues: Unremarkable. CT/CT chest wo con [id number] IMPRESSION: 1. Pulmonary fibrosis and bronchiectasis especially in the right lung. 2. No new infiltrates are seen in the lungs. 3. Benign calcified granulomas disease. 4. Mild coronary artery calcification.
== END 2021-06-30 09:31 | disposition home or self-care (01) ==
PROVIDERS: PCP Family Medicine; Visit Provider Internal Medicine Pulmonary Disease
DX: J47.9 Bronchiectasis, uncomplicated (principal); R05.3 Chronic cough
CPT/HCPCS: 71250

== ENCOUNTER → 2021-07-13 09:40 | Outpatient (BNVA) | payer MEDICARE, OTHER, SELFPAY | PROVIDERS: PCP Family Medicine; Visit Provider Internal Medicine Pulmonary Disease | DX: J47.9 Bronchiectasis, uncomplicated (principal); J22 Unspecified acute lower respiratory infection; K21.9 Gastro-esophageal reflux disease without esophagitis; Z91.89 Other specified personal risk factors, not elsewhere classified; R05.3 Chronic cough; Z86.16 Personal history of COVID-19 | CPT/HCPCS: 99214 ==

== ENCOUNTER 2021-07-14 10:50 | Outpatient (CLI) | payer MEDICARE, SELFPAY | END 2021-07-14 10:51 | disposition home or self-care (01) | PROVIDERS: PCP Family Medicine; Visit Provider Internal Medicine Pulmonary Disease | DX: J47.9 Bronchiectasis, uncomplicated (principal) | CPT/HCPCS: 87015; 87070; 87116; 87205; 87206; 87801 ==

== ENCOUNTER 2021-08-30 07:55 | Outpatient (CLI) | payer MEDICARE, SELFPAY ==
--- NOTE | 2021-08-30 13:42 | PFTS_ITS ---
Date of Study:08/30/21 Date of Dictation: MECHANICS: Forced vital capacity (FVC) is normal. Forced expiratory volume in one second (FEV1) is normal. FEV1/FVC is normal. FLOW VOLUME LOOP: Variable inspiratory flow obstruction on flow volume loop. LUNG VOLUMES: Total lung capacity (TLC) is normal. Residual volume (RV) is normal. DIFFUSING CAPACITY FOR CARBON MONOXIDE: Normal. INTERPRETATION: The prebronchodilator spirometry is normal. No postbronchodilator spirometry was performed. The flow-volume loop is suggestive of variable inspiratory airflow obstruction. Lung volumes are normal. Gas exchange (DLCO) is normal. MTDD
== END 2021-08-30 07:56 | disposition home or self-care (01) ==
PROVIDERS: PCP Family Medicine; Visit Provider Internal Medicine Pulmonary Disease
DX: R05.3 Chronic cough (principal); J47.9 Bronchiectasis, uncomplicated
CPT/HCPCS: 94010; 94618; 94726; 94729

== ENCOUNTER → 2021-10-09 10:19 | Outpatient (BNVA) | payer MEDICARE, SELFPAY | PROVIDERS: PCP Family Medicine; Visit Provider Family Medicine | DX: Z51.81 Encounter for therapeutic drug level monitoring (principal); R10.9 Unspecified abdominal pain; E03.9 Hypothyroidism, unspecified; E53.8 Deficiency of other specified B group vitamins; E55.9 Vitamin D deficiency, unspecified; R01.1 Cardiac murmur, unspecified; R53.81 Other malaise; R53.83 Other fatigue; J47.9 Bronchiectasis, uncomplicated | CPT/HCPCS: 80053; 82306; 82607; 84439; 84443; 85025; 86141 ==

== ENCOUNTER → 2021-11-03 10:35 | Outpatient (BNVA) | payer MEDICARE, SELFPAY | PROVIDERS: PCP Family Medicine; Visit Provider Internal Medicine Pulmonary Disease | DX: R06.09 Other forms of dyspnea (principal); J47.9 Bronchiectasis, uncomplicated; R05.3 Chronic cough; K21.9 Gastro-esophageal reflux disease without esophagitis; Z91.89 Other specified personal risk factors, not elsewhere classified; R94.2 Abnormal results of pulmonary function studies; J84.10 Pulmonary fibrosis, unspecified; Z86.16 Personal history of COVID-19 | CPT/HCPCS: 99214 ==

== ENCOUNTER 2021-11-09 10:40 | Outpatient (CLI) | payer MEDICARE, SELFPAY ==
[2021-11-09] MEDS: iohexol 350 mg/mL 100 mL Btl PO (11:18)
[2021-11-09] MEDS: iohexol 350 mg/mL 100 mL Btl IV (11:19)
--- NOTE | 2021-11-09 12:30 | CT_ITS ---
WS: [id number] CT ABDOMEN AND PELVIS WITH CONTRAST HISTORY: RIGHT upper quadrant pain. Elevated liver enzymes. TECHNIQUE: Imaging performed of the abdomen and pelvis with IV contrast. Single phase imaging of the abdomen. Coronal and sagittal reformats are submitted. All CT scans at [facility] use at [address] one of these dose optimization techniques: automated exposure control; mA and/or kV adjustment per patient size (includes targeted exams where dose is matched to clinical indication); or iterative re construction. IV CONTRAST: Omnipaque 350; 95 mL IV. Oral contrast: Yes DLP: 990.69 mGy.cm COMPARISON: 12/14/2020 Lower thorax: Changes of mild thickening and fibrosis at the RIGHT lung base. Heart is normal size. S mall hiatal hernia. Liver/biliary system: Normal size with no intrahepatic dilatation. Gallbladder: Normal. No gallstones or wall thickening. No pericholecystic fluid. Pancreas: Normal size pancreas and pancreatic duct. No adjacent inflammation. Spleen: Normal size spleen. 1.4 cm small cluster of cysts in the posterior spleen are stable. Adrenal glands: Normal. Right kidney: Normal. Left kidney: Normal. Aorta: Mild atherosclerosis with no aneurysm. Well-circumscribed low-attenuation mass just inferior to the tip of the RIGHT lobe of the liver measu res 3.6 x 2.3 cm. Could be arising from the colon. No change since 12/14/2020. Postoperative seroma. S mall lymphangioma. Patient had surgery in this location for appendectomy. Lymphadenopathy: None. Free fluid: None. GI tract: Markedly distended stomach. No small bowel obstruction. No wall thickening. Diffuse constip ation throughout the colon. Previously described wall thickening at the cecum is no longer present. S urgically removed. Abdominal wall: Fat containing umbilical hernia. Pelvis: Prior hysterectomy. No free fluid or adenopathy. Partially distended urinary bladder. Bones: Unremarkable. CT/CT abdomen pelvis w con* [id number] IMPRESSION: 1. No acute abdominal or pelvic abnormalities are identified. 2. Stable cluster of cysts posterior spleen. 3. Mild diffuse constipation. 4. Resolved cecal wall thickening since 12/14/2020. 5. Prior hysterectomy. 6. Negative liver. No bile duct dilatation.
== END 2021-11-09 10:41 | disposition home or self-care (01) ==
LOC: RAD 10:41
PROVIDERS: PCP Family Medicine; Visit Provider Family Medicine
DX: R10.9 Unspecified abdominal pain (principal); R74.8 Abnormal levels of other serum enzymes; D73.4 Cyst of spleen; K59.00 Constipation, unspecified
CPT/HCPCS: 74177

== ENCOUNTER 2021-12-01 08:19 | Outpatient (CLI) | payer MEDICARE, SELFPAY ==
--- NOTE | 2021-12-01 08:45 | USCV_ITS ---
Jose Antonio Orosco Age: 76 Gender: F : 1945 Exam Date: 12/01/2021 08:52 Ordering Phys: Homero Mesa MD Technologist: Francisca Mejias Exam Location: [facility] [place] Indication: New murmur BP: 118 / 72 HR: 68 Rhythm: Sinus Technical Quality: Adequate MEASUREMENTS (Male / Female) Normal Values 2D ECHO LV Diastolic Diameter PLAX 4.5 cm 4.2 - 5.9 / 3.9 - 5.3 cm LV Systolic Diameter PLAX 2.8 cm IVS Diastolic Thickness 1.0 cm 0.6 - 1.0 / 0.6 - 0.9 cm IVS Systolic Thickness 1.5 cm LVPW Diastolic Thickness 0.8 cm 0.6 - 1.0 / 0.6 - 0.9 cm LVPW Systolic Thickness 1.7 cm LVOT Diameter 2.1 cm LV Ejection Fraction 2D Teich 69.7 % LV Ejection Fraction MOD 2C 75.3 % LV Ejection Fraction 2C AL 75.2 % LA Diameter 3.0 cm LA Width 4.0 cm LA Height 4.6 cm RA Width 2.4 cm RA Height 3.8 cm Aorta at Sinotubular Diameter 2.7 cm IVC Diameter 1.0 cm M-MODE MV E Point Septal Separation 0.3 cm DOPPLER AV Peak Velocity 109.0 cm/s LVOT Peak Velocity 83.0 cm/s AV Area Cont Eq vti 2.3 cm squared AV Area Cont Eq pk 2.7 cm squared MV Peak Velocity 118.0 cm/s MV Area PHT 2.3 cm squared Mitral E to A Ratio 0.8 MV E' Velocity 38.0 cm/s Mitral E to MV E' Ratio 9.6 Mitral E to LV E' Lateral Ratio 8.5 Mitral E to LV E' Septal Ratio 11.0 TR Peak Velocity 222.0 cm/s TR Peak Gradient 19.7 mmHg Right Atrial Pressure 3.0 mmHg Pulmonary Artery Systolic Pressu 22.7 mmHg PV Peak Velocity 76.0 cm/s RV Acceleration Time 0.2 s RV Ejection Time 0.3 s RV AcT/ET 0.5 FINDINGS Left Ventricle Normal left ventricular size, systolic function and wall thickness, with no regional wall motion abnormalities. Left ventricular ejection fraction is estimated at 65 %. Indeterminate diastolic function. Right Ventricle Normal right ventricular size and systolic function. Right ventricular systolic pressure 35 mmHg. Right Atrium Normal right atrial size. Left Atrium Mildly increased left atrial size. Mitral Valve Mildly thickened mitral valve. No mitral valve stenosis. Trace to mild mitral valve regurgitation. Aortic Valve Mildly thickened trileaflet aortic valve. No aortic valve stenosis. Trace aortic valve regurgitation. Tricuspid Valve Structurally normal tricuspid valve. No tricuspid valve stenosis. Trace tricuspid valve regurgitation. Pulmonic Valve Structurally normal pulmonic valve. No pulmonary valve stenosis. Trace pulmonary valve regurgitation. Pericardium No pericardial effusion. Aorta Normal size aortic root and proximal ascending aorta. IVC Normal IVC dimension with >50% respiratory change of the inferior vena cava. CONCLUSIONS 1. Normal left ventricular size, systolic function and wall thickness, with no regional wall motion abnormalities. Left ventricular ejection fraction is estimated at 65 %. Indeterminate diastolic function. 2. Normal right ventricular size and systolic function. 3. Trace to mild mitral valve regurgitation. 4. No prior similar studies to compare. Pearl Stanford MD (Electronically Signed) Final Date: 04 December 2021 16:58 S
== END 2021-12-01 08:20 | disposition home or self-care (01) ==
LOC: RAD 08:19
PROVIDERS: PCP Family Medicine; Visit Provider Family Medicine
DX: R01.1 Cardiac murmur, unspecified (principal); R53.81 Other malaise; R53.83 Other fatigue; I34.0 Nonrheumatic mitral (valve) insufficiency
CPT/HCPCS: 93306

== ENCOUNTER → 2021-12-04 13:35 | Outpatient (BNVA) | payer MEDICARE, SELFPAY | PROVIDERS: PCP Family Medicine; Visit Provider Otolaryngology | DX: R06.09 Other forms of dyspnea (principal); R94.2 Abnormal results of pulmonary function studies; K21.9 Gastro-esophageal reflux disease without esophagitis; R01.1 Cardiac murmur, unspecified; M26.623 Arthralgia of bilateral temporomandibular joint | CPT/HCPCS: 31575; 99203; 99204 ==

== ENCOUNTER 2022-01-03 08:06 | Outpatient (CLI) | payer MEDICARE, SELFPAY ==
[2022-01-03 08:11] VITALS: BMI 28.3
--- NOTE | 2022-01-03 08:17 | NMCV_ITS ---
NM ten perf SPECT r/s* [id number] Jose Antonio Orosco Age: 76 Gender: F : 1945 Exam Date: 01/03/2022 09:30 Ordering Phys: Kenny Choi MD Technologist: PATTI King Exam Location: [facility] Indications: SHORTNESS OF BREATH STRESS TEST Please see separate stress test report in [facility] for full findings IMAGE PROTOCOL Rest/Stress 1 Lexiscan Day Radiopharmaceutical Dose (mCi) Administration Site Administered by Rest: Tc-99m 10.0 IV PATTI Judge Sestamibi Stress:Tc-99m 30.7 IV PATTI Judge Sestamibi Rest: 03-Jan-2022 60 Discovery 630 Stress: 03-Jan-2022 30 Discovery 630 0.4mg Lexiscan. Images obtained in supine and prone position. SPECT RESULTS Technical Quality: Excellent Raw Data Analysis: Normal Image Corrections: No attenuation or motion correction applied Summed Stress Score: 1 Summed Rest Score: 0 Summed Difference Score: 1 PERFUSION FINDINGS A small area of slightly decreased tracer uptake was noted in the mid inferolateral region with reversibility. However for the SPECT imaging no significant reversible defects were noted FUNCTIONAL RESULTS (calculated via Gated SPECT) Stress Image LV EF (%): 71 Stress EDV (mL):85 TID: 1.28 Stress ESV (mL):25 FUNCTIONAL FINDINGS: Segmental wall motion analysis revealing no gross wall motion normalities. IMPRESSIONS 1. Myocardial perfusion imaging revealing a small area of inconsistent reversible defect in the mid inferolateral region suggesting ischemia in the distribution of the circumflex artery. 2. Normal LV ejection fraction 71%. 3. LV wall motion analysis revealing no gross wall motion abnormalities. 4. Normal LV volume 5. Elevated transient ischemic dilatation ratio may suggest endocardial ischemia. Possibility of the patient having a balanced ischemia is a consideration. However because of the inconsistencies clinical correlation is strongly indicated Dr Patricia Mccabe MD [facility] (Electronically Signed) Final Date: 03 January 2022 19:02 S
--- NOTE | 2022-01-03 08:17 | ECG_ITS ---
[facility] Test Date: 2022-01-03 Pat Name: Jose Antonio Orosco Department: Room: Gender: Female Still Operator Whiskey: Rosemary Romero : 1945 Requested By: Kenny Uriarte Order Number: [id number] Abhishek MD: Patricia Mccabe M.D. Interpretive Statements NAME OF STUDY: LEXISCAN SESTAMIBI STRESS TEST INDICATION: Shortness of Breath, PROCEDURE: At the baseline, the EKG revealed normal sinus rhythm with normal ST Ts. The baseline heart was 70 bpm with a blood pressue of 142/80 mm of Hg Lexiscan was infused over a period of 20 seconds. A total of 0.4 milligrams of Lexiscan was infused. The stress phase was continued for a total of 5 minutes. Heart rate at the end of the stress phase was 83 bpm with a blood pressure 151/82 mm of Hg. The EKG at the peak infusion revealed no significant changes. Sestamibi was injected 20 seconds after the Lexiscan infusion. Heart rate at the end of the recovery phase was 81 bpm with a blood pressure of 143/76 mm of Hg. CONCLUSION: 1. No significant EKG changes with the LexiScan infusion 2. No LexiScan induced chest pain or cardiac arrhythmia 3. Normal blood pressure and heart rate response 4. Sestamibi/sestamibi perfusion scan pending; see separate report. Electronically Signed On 01-04-2022 12:24:49 [employer]DUCTOR [employer]ULLMAN by Patricia Mccabe M.D. [email or web address]
[2022-01-03] MEDS: regadenoson 0.4 Mg/5 ml Syringe IVP (10:05)
[2022-01-03 10:25] VITALS: BP 143/76; PULSE 81
== END 2022-01-03 08:07 | disposition home or self-care (01) ==
LOC: CDL 08:10
PROVIDERS: PCP Family Medicine; Visit Provider Internal Medicine Pulmonary Disease
DX: R06.02 Shortness of breath (principal)
CPT/HCPCS: 36415; 78452; 93017; 96374; A9500; J2785

== ENCOUNTER → 2022-02-06 14:03 | Outpatient (BNVA) | payer MEDICARE, SELFPAY | PROVIDERS: PCP Family Medicine; Visit Provider Internal Medicine Pulmonary Disease | DX: R06.09 Other forms of dyspnea (principal); J47.9 Bronchiectasis, uncomplicated; R05.3 Chronic cough; K21.9 Gastro-esophageal reflux disease without esophagitis; Z91.89 Other specified personal risk factors, not elsewhere classified | CPT/HCPCS: 99214 ==

== ENCOUNTER → 2022-03-20 11:58 | Outpatient (BNVA) | payer MEDICARE, SELFPAY | PROVIDERS: PCP Family Medicine; Visit Provider Internal Medicine Cardiovascular Disease | DX: R94.39 Abnormal result of other cardiovascular function study (principal); R06.09 Other forms of dyspnea; J43.9 Emphysema, unspecified; I34.0 Nonrheumatic mitral (valve) insufficiency | CPT/HCPCS: 36415; 80048; 83880; 99205 ==

== ENCOUNTER 2022-04-10 07:32 | Outpatient (CLI) | payer MEDICARE, SELFPAY ==
[2022-04-10] VITALS (14 sets, daily range): BP systolic 136–159; BP diastolic 63–112; PULSE 63–79; RESP 14–21; TEMP 36.4; O2SAT 94–97; BMI 28.4
--- NOTE | 2022-04-10 07:30 | XACV_ITS ---
Exam Room: 2 Ht: 165 cm Wt: 78 kg BSA: 1.91 m2 Gender: Female : 1945 Any Known Allergies: No known allergies Exam Priority: Routine Procedure(s): Procedure Description: Diagnostic procedure Procedure Description: Left Heart Catheterization Procedure Description: Left ventriculography Procedure Description: Coronary Angiography Eliot WAN; Diagnostic Cath Status: Elective Diagnostic Findings * Left main is a medium caliber vessel with no significant stenotic lesions. * The left anterior descending artery is a medium caliber vessel which appears to wrap around the LV apex. Minimal intimal irregularities were noted in the midsegment. No significant stenotic lesions were seen. * The left circumflex artery is a medium caliber nondominant vessel with no significant stenotic lesions. * Right coronary artery is relatively large dominant vessel with no significant stenotic lesions. Conclusions 1. 76-year-old white female with a history of COPD, presented with progressive shortness of breath. She had a Myocardial perfusion imaging which revealed a small area of reversible defect in the inferolateral wall region suggesting ischemia in the distribution of the left circumflex artery. Her shortness of breath was found to be out of proportion to her lung dysfunction. In order to further evaluate her coronary status, a cardiac catheterization was requested. Patient underwent left heart catheterization with left and right coronary angiogram and LV angiogram today. The findings are as follows. 2. 1. Nonobstructive coronary artery disease. 2. Markedly elevated LVEDP suggesting left-ventricular diastolic dysfunction. 3. Normal LV ejection fraction. Diagnostic RX Recommendation: medical therapy and/or counseling LV EDP: 28 mmHg Ventriculography Ejection Fraction: 60.0 % Left Ventriculography Findings: * The LV gram was performed the BEARD position. The LV cavity appears to be normal size. There was no filling defects. Mild mitral valve prolapse was noted. The LVEDP was 28 mmHg which went down to 26, following the LV angiogram. Pressures Phase:Rest AO : 105 / 43 ( 66 ) @ 8:58:00 AM 93 / 66 ( 80 ) @ 9:03:00 AM 138 / 60 ( 93 ) @ 9:12:00 AM 139 / 61 ( 93 ) @ 9:12:00 AM LV : 131 / -4 / 19 @ 9:10:00 AM 114 / -25 / 0 @ 9:11:00 AM 137 / 0 / 28 @ 9:12:00 AM 138 / 0 / 26 @ 9:12:00 AM Valves Phase:DefaultPhase AV : 0.0 @ 9:19:28 AM AV Mean Gradient: 0.0 @ 9:19:28 AM 0.0 @ 9:19:28 AM Clinical Evaluation EBL: 5mL-10mL Procedural Details Procedure Consent Obtained. Pre-Procedure Time Out. Identified patient by full name and date of as verbalized by the patient/guarantor. Does the consent match the physician's order: Yes. Accurate & Complete Informed Consent: Yes. Inpatient/Outpatient History & Physical on Chart: Yes. If H&P is completed, is and addenduem needed: No. Visualize and Verify Site with Patient/Guarantor: N/A. Relevant Radiology Images available: Yes. The risks, benefits, and alternatives of sedation and/or procedure were discussed by physician. The patient agrees to continue. [facility] Clinical Fraility Score: 3: Managing Well. Compensation Business Partner Indications: New Onset Angina/Abnormal stress test. Chest Pain Symptom Assessment: Typical Angina Symptoms. Cardiovascular Instability: No. Correct patient, site and procedure confirmed by cath team. PERRLA. Strong, equal hand integration analyst bilaterally. Lungs clear x 5 lobes. IV Site on Arrival: 20 gauge in the right anticubital. IV Fluids: 0.9% NaCl at KVO. 0 mL infused prior to medical laboratory manager. Pre Procedural Pulses: bilateral dorsalis pedis was 2+. Pre Procedural Pulses: bilateral posterior tibial was 1+. Pre Procedural Pulses: bilateral radial was 3+. Oxygen started at 2liters/min via nasal canula. right groin was prepped with chloroprep then draped in the usual sterile fashion. right radial was prepped with chloroprep then draped in the usual sterile fashion. Physician notified. Baseline sample Acquired. HR: 68 BPM. Patient's family in the clinical laboratory technologist waiting room. Dr. Mccabe will update at the completion of the procedure. Equipment: 6F - Radial. Cardiac Cath Pack. ACIST Manifold Kit Model BT 2000. Heparinized Saline (2 units/mL), 1000 mL bag. Physician arrived. Carlos Sanchez RN, circulating with Rosemary Romero RN. Physician scrubbed in. Immediate Pre-Procedure Time Out. Correct Patient: Yes; Correct Procedure: Yes; Correct Site: Yes; Correct Patient Position: Yes; Correct Supplies: Yes; Dried Flammable Prep: Yes; Blood Products Available: N/A;. Lidocaine 1% infiltrated to the right radial. Arterial access obtained. A 5 [place] Baron catheter in over the exchange J wire. Multiple views taken of left coronary artery. Catheter redirected to the RCA, unable to cannulate. Catheter removed over the exchange J wire. A 5 [place] JR4 catheter in over the exchange J wire. Catheter redirected to the LV. A 5 [place] Angled Pig catheter in over the exchange J wire. EDP Sample taken: LV 131/-5,19; HR: 71 BPM; SpO2: 97%. LV gram performed in BEARD @ 10 mL/second for a total of 30 mL. EDP Sample taken: LV 114/-26,-1; HR: 69 BPM; SpO2: 98%. EDP Sample taken: LV 137/-1,28; HR: 72 BPM; SpO2: 99%. Pullback taken: LV 138/0,26; AO 138/60(93); Mean: 0mmHg, Peak to Peak: 0mmHg, SEP: 6sec/min; HR: 63 BPM; SpO2: 98%. Catheter removed over the exchange J wire. Dr. Mccabe scrubbed out. A TR Band was successful obtaining hemostatsis at the Right Radial artery insertion site. TR band placed. Hemostasis obtained. Post Procedure: Pulses reassessed and unchanged. PERRLA. Strong, equal hand integration analyst bilaterally. No VTE prophylaxis required. Medication's Wasted: Lidocaine 1% = 3 mL. Medication's Wasted: Nitro = 49.8 mg. Medication's Wasted: Heparin = 1000 units. Medication's Wasted: Other = Fentanyl 50 mcg. Total IV fluids: 270 mL. Post-op diagnosis: Non obstructive CAD. Complications: none. Estimated blood loss: 5mL-10mL. Responsiveness - Normal response to verbal stimuli; alert and oriented, PERRLA. Airway - Unaffected, no intervention required; spontaneous ventilation. Circulation: W/N/L, pulses unchanged. Nausea/Vomiting: No. Procedure completed. Patient transferred by wheelchair to CPRU. Vital chart was stopped. Access Site Site: Right Radial artery Sheath Size: 6 Fr Hemostasis Method: TR Band Hemostasis Success: Successful Procedure Medications Start: 8:45 AM Stop: 8:45 AM Medication: Fentanyl Amount: 25 mcg Route: I.V. Start: 8:50 AM Stop: 8:50 AM Medication: Versed Amount: 1 mg Route: I.V. Start: 8:50 AM Stop: 8:50 AM Medication: Fentanyl Amount: 25 mcg Route: I.V. Start: 8:55 AM Stop: 8:55 AM Medication: Nitrogylcerin Amount: 200 mcg Route: I.A. Start: 8:55 AM Stop: 8:55 AM Medication: Verapamil Amount: 5 mg Route: I.A. Start: 8:55 AM Stop: 8:55 AM Medication: Versed Amount: 1 mg Route: I.V. Start: 8:58 AM Stop: 8:58 AM Medication: 0.9% Saline Amount: 250 ml Route: I.V. bolus Start: 8:59 AM Stop: 8:59 AM Medication: Heparin Amount: 5000 units Route: I.V. I, the attending physician, have reviewed and verified all procedure medications. Yes, all medications given per verbal order History/Risk Factors Hypertension: No Dyslipidemia: No Peripheral Arterial Disease (PAD): No Myocardial Infarction (NV): No Obesity: No Renal Disease: No Tobacco Use: Never Prior Interventions PCI: No CABG: No Valve Surgery: No Report Signatures Finalized by Dr Patricia Mccabe MD [facility] on 04/10/2022 09:54 AM
[2022-04-10 08:07] LABS: Basophils % 0.5 %; Eosinophils # 0.2 10^3/uL (0.0-0.8); Eosinophils % 2.1 %; Hematocrit 43.5 % (37.0-47.0); Hemoglobin 13.6 g/dL (11.5-15.3); Lymphocytes # 3.1 10^3/uL (0.8-4.8); Lymphocytes % 35.9 %; Mean Corpuscular HGB Conc 31.3 g/dL (30.0-36.0); Mean Corpuscular Hemoglobin 29.6 pg (28.0-34.0); Mean Corpuscular Volume 94.8 fl (81-99); Mean Platelet Volume 10.9 fL (7.4-10.4); Monocytes # 0.7 10^3/uL (0.2-0.9); Monocytes % 8.2 %; Neutrophils # 4.58 10^3/uL (1.8-7.7); Nucleated Red Blood Cells % 0 %; Platelet Count 271 10^3/cmm (130-400); Red Blood Count 4.59 10^6/uL (4.1-5.3); Red Cell Distribution Width 13.9 % (12.1-15.1); White Blood Count 8.6 10^3/uL (4.0-10.0)
[2022-04-10] MEDS: aspirin 325 mg Tablet PO (08:24)
[2022-04-10] MEDS: diphenhydrAMINE 50 mg Capsule PO (08:24)
[2022-04-10 08:25] LABS: Anion Gap 16.9 (5-19); Blood Urea Nitrogen 13 mg/dL (8-23); Calcium 9.1 mg/dL (8.5-10.5); Carbon Dioxide 23 mmol/L (22-29); Chloride 103 mmol/L (98-107); Glucose 101 mg/dL (65-115); Osmolality Calculated 288 mOsm/kg (285-295); Potassium 3.9 mmol/L (3.5-5.1); Sodium 139 mmol/L (136-145)
--- NOTE | 2022-04-10 08:36 | P.HPUD_ITS ---
Surgery/Procedure H&P Update DATE OF PROCEDURE: April 10, 2022 DATE H&P PERFORMED: 03/20/22 H&P UPDATE INFORMATION: I have reviewed H&P completed within last 30 days, I have examined patient prior to procedure and No changes to prior documentation PREOP DIAGNOSIS: ASHD PRIMARY INDICATION FOR PROCEDURE: SOB/ Abnormal MPI/ risk factors PLANNED PROCEDURE: Operation Date: 04/10/22 08:30 Proposed Procedures p [facility] w/-w/o 61230,R07.9,R94.39(Left) - Patricia Mccabe MD PATIENT REASSESSED PRIOR TO SEDATION, WITH NO CHANGE NOTED: Yes PHYSICAL EXAM: alert and oriented x 3 AIRWAY EVAL/ANESTHESIA PLAN: normal airway, see other exam findings, ASA III, Monitored Anesthesia, Local Anesthesia, Risks, benefits & alternatives of sedation and/or procedure discussed and Patient agrees to continue as planned
--- NOTE | 2022-04-10 10:53 | PC.NURSE ---
around 930 cpru received pt from phlebotomy lab assistant post diagnostic [facility]. tr band on right wrist with distal pulse palpable. pt alert and oriented x3. pt complains of no pain. pt educated on restrictions of right wrist and pt stated understanding. nurse to continue to educate throughout recovery. pt placed on vitals monitor and will be monitored per protocol.
== END 2022-04-10 13:03 | disposition home or self-care (01) ==
PROVIDERS: PCP Family Medicine; Visit Provider Internal Medicine Cardiovascular Disease
DX: I25.10 Atherosclerotic heart disease of native coronary artery without angina pectoris (principal); R06.02 Shortness of breath; R94.39 Abnormal result of other cardiovascular function study; Z86.16 Personal history of COVID-19; J43.9 Emphysema, unspecified
CPT/HCPCS: 36415; 80048; 85025; 93458; 96361; 96365; 99152; 99153; C1769; C1887; C1894; J1644; J2250; J3010; J3490; J7030; Q0163; Q9967

== ENCOUNTER → 2022-04-17 09:30 | Outpatient (BNVA) | payer MEDICARE, SELFPAY | PROVIDERS: PCP Family Medicine; Visit Provider Nurse Practitioner Family | DX: I25.10 Atherosclerotic heart disease of native coronary artery without angina pectoris (principal); R06.09 Other forms of dyspnea | CPT/HCPCS: 36415; 80048; 99214 ==

== ENCOUNTER → 2022-06-07 08:25 | Outpatient (BNVA) | payer MEDICARE, SELFPAY | PROVIDERS: PCP Family Medicine; Visit Provider Internal Medicine Pulmonary Disease | DX: J84.10 Pulmonary fibrosis, unspecified (principal); J47.9 Bronchiectasis, uncomplicated; R05.3 Chronic cough; K21.9 Gastro-esophageal reflux disease without esophagitis; Z91.89 Other specified personal risk factors, not elsewhere classified; Z77.22 Contact with and (suspected) exposure to environmental tobacco smoke (acute) (chronic); Z82.49 Family history of ischemic heart disease and other diseases of the circulatory system | CPT/HCPCS: 99214 ==

== ENCOUNTER → 2022-07-24 10:48 | Outpatient (BNVA) | payer MEDICARE, SELFPAY | PROVIDERS: PCP Family Medicine; Visit Provider Nurse Practitioner Family | DX: I25.10 Atherosclerotic heart disease of native coronary artery without angina pectoris (principal) | CPT/HCPCS: 99213 ==

== ENCOUNTER 2022-09-03 09:26 | Outpatient (CLI) | payer MEDICARE, SELFPAY ==
--- NOTE | 2022-09-03 09:39 | XR_ITS ---
WS: [id number] EXAMINATION: XR knee LT 3V* [id number] REASON FOR EXAM: Left knee pain COMPARISON: 06/09/2018 ORDER DATE: 09/03/2022 9:43 AM FINDINGS: There are marginal osteophytes associated with the tibial spines, patella and other articular margins with medial and patellofemoral compartment narrowing. There is no sign of any acute fracture or disl ocation. A small joint effusion cannot be excluded but there is no evidence of any large effusion XR/XR knee LT 3V* [id number] IMPRESSION: MEDIAL AND PATELLOFEMORAL COMPARTMENT NARROWING WITH OSTEOARTHRITIC CHANGES.
== END 2022-09-03 09:27 | disposition home or self-care (01) ==
PROVIDERS: PCP Family Medicine; Visit Provider Family Medicine
DX: M17.12 Unilateral primary osteoarthritis, left knee (principal)
CPT/HCPCS: 73562

== ENCOUNTER 2022-10-12 06:00 | Outpatient (RCR) | payer MEDICARE, SELFPAY | END 2022-11-10 23:59 | disposition home or self-care (01) | LOC: APT 06:00 | PROVIDERS: Visit Provider Orthopaedic Surgery | DX: Z47.1 Aftercare following joint replacement surgery (principal); Z96.652 Presence of left artificial knee joint | CPT/HCPCS: 97110; 97112; 97162; 97530 ==

== ENCOUNTER 2022-11-11 06:00 | Outpatient (RCR) | payer MEDICARE, SELFPAY | END 2022-12-11 23:59 | disposition home or self-care (01) | LOC: APT 06:00 | PROVIDERS: Visit Provider Orthopaedic Surgery | DX: Z96.652 Presence of left artificial knee joint (principal); Z47.89 Encounter for other orthopedic aftercare; R26.89 Other abnormalities of gait and mobility | CPT/HCPCS: 97110; 97140; 97530 ==

== ENCOUNTER → 2023-01-07 16:19 | Outpatient (BNVA) | payer MEDICARE, SELFPAY | PROVIDERS: PCP Family Medicine; Visit Provider Family Medicine | DX: R05.9 Cough, unspecified (principal) | CPT/HCPCS: 87400; 87426 ==

== ENCOUNTER → 2023-01-29 10:55 | Outpatient (BNVA) | payer MEDICARE, SELFPAY | PROVIDERS: PCP Family Medicine; Visit Provider Internal Medicine Cardiovascular Disease | DX: I51.9 Heart disease, unspecified (principal); R06.09 Other forms of dyspnea; I34.0 Nonrheumatic mitral (valve) insufficiency; J47.9 Bronchiectasis, uncomplicated | CPT/HCPCS: 99213 ==

== ENCOUNTER → 2023-03-11 08:10 | Outpatient (BNVA) | payer MEDICARE, SELFPAY | PROVIDERS: PCP Family Medicine; Visit Provider Internal Medicine Pulmonary Disease | DX: R06.09 Other forms of dyspnea (principal); J47.9 Bronchiectasis, uncomplicated; R05.3 Chronic cough; K21.9 Gastro-esophageal reflux disease without esophagitis; Z91.89 Other specified personal risk factors, not elsewhere classified | CPT/HCPCS: 99214 ==

== ENCOUNTER 2023-04-23 16:14 | Outpatient (CLI) | payer MEDICARE, SELFPAY ==
--- NOTE | 2023-04-23 16:19 | XRR_ITS ---
PROCEDURE INFORMATION: Exam: XR Chest Exam date and time: 04/23/2023 4:29 PM Age: 77 years old Clinical indication: Cough; Additional info: Cough for 10 days TECHNIQUE: Imaging protocol: Radiologic exam of the chest. Views: 2 views. COMPARISON: CT chest con [id number] 06/30/2021 9:51 AM FINDINGS: Lungs: No focal consolidation. 6 mm right upper lobe nodular opacity. There is mild bronchiectasis and hazy opacities in the mid to lower right lung, possibly reflecting chronic pulmonary infection. Pleural spaces: No evidence of pneumothorax. No evidence of pleural effusion. Heart/Mediastinum: Cardiomediastinal silhouette is within normal limits. Bones/joints: No evidence of acute osseous abnormality. XR/XR chest 2V* [id number] IMPRESSION: 1. No acute cardiopulmonary abnormality. 2. Mild bronchiectasis and hazy opacities in the mid to lower right lung, possibly reflecting chronic pulmonary infection. Ongoing infection is difficult to exclude. 3. Right upper lobe nodular opacity measuring 6 mm. Follow-up CT of the chest is recommended to evaluate for a pulmonary nodule.
== END 2023-04-23 16:15 | disposition home or self-care (01) ==
LOC: RAD 16:17
PROVIDERS: PCP Family Medicine; Visit Provider Family Medicine
DX: J47.0 Bronchiectasis with acute lower respiratory infection (principal); J18.9 Pneumonia, unspecified organism; E55.9 Vitamin D deficiency, unspecified; I10 Essential (primary) hypertension; R91.8 Other nonspecific abnormal finding of lung field
CPT/HCPCS: 71046; 80053; 80061; 82306; 82607; 85025

== ENCOUNTER 2023-05-22 10:13 | Outpatient (CLI) | payer MEDICARE, SELFPAY ==
--- NOTE | 2023-05-22 10:30 | CT_ITS ---
WS: [id number] CT chest wo con [id number] HISTORY: Lung nodule - RUL, ongoing infection TECHNIQUE: Axial imaging performed through the thorax. Coronal and sagittal reformats are submitted. All CT scans at [facility] use at least one of these dose optimization techniques: automated exposure control; mA and/or kV adjustment per patient size (includes targeted exams where dose is mat ched to clinical indication); or iterative reconstruction. CONTRAST: Omnipaque 350; 100 mL IV. DLP: 290.17 mGy.cm COMPARISON: Chest CT 06/30/2021, radiograph 04/23/2023 Lungs and central airway: Bilateral interstitial pulmonary opacifications greatest in the mid and low er lungs. There is associated bronchiectasis and bronchial wall thickening. Partial atelectasis at th e lingula. No new or increasing consolidation. Nodular opacity seen on the recent radiograph correspo nds to the bronchiectasis and pulmonary fibrosis. Pleura: Normal. No pleural effusion. Heart and pericardium: Normal size heart with no pericardial effusion. Mediastinum and radha: No adenopathy noted on this unenhanced exam. Vessels: Mild atherosclerosis aorta. No aneurysm. Normal size pulmonary artery. Chest wall and lower neck: No soft tissue masses. Upper abdomen: Normal. Osseous structures: No destructive process. IMPRESSION: 1. Interstitial thickening with pulmonary fibrosis and bronchiectasis. The previously described nodu le in the RIGHT upper lobe corresponds to an area of interstitial reticular nodular thickening. No ne w mass or increasing size of any nodule since the CT of 06/30/2021. 2. No adenopathy.
== END 2023-05-22 10:14 | disposition home or self-care (01) ==
LOC: RAD 10:14
PROVIDERS: PCP Family Medicine; Visit Provider Family Medicine
DX: J47.9 Bronchiectasis, uncomplicated (principal); R91.1 Solitary pulmonary nodule
CPT/HCPCS: 71250

== ENCOUNTER → 2023-07-02 13:50 | Outpatient (BNVA) | payer MEDICARE, SELFPAY | PROVIDERS: PCP Family Medicine; Visit Provider Internal Medicine Pulmonary Disease | DX: R06.09 Other forms of dyspnea (principal); J47.9 Bronchiectasis, uncomplicated; R05.3 Chronic cough; K21.9 Gastro-esophageal reflux disease without esophagitis; Z91.89 Other specified personal risk factors, not elsewhere classified; Z77.22 Contact with and (suspected) exposure to environmental tobacco smoke (acute) (chronic) | CPT/HCPCS: 99214 ==

== ENCOUNTER 2023-07-16 07:21 | Day surgery (SDC) | payer MEDICARE, SELFPAY ==
[2023-07-16] VITALS (7 sets, daily range): BP systolic 117–138; BP diastolic 62–77; PULSE 67–82; RESP 16–18; TEMP 36.1–36.2; O2SAT 96–98; BMI 25.4
--- NOTE | 2023-07-16 07:58 | ECG_ITS ---
[facility] Test Date: 2023-07-16 Pat Name: Jose Antonio Orosco Department: Room: Gender: Female Assembly Repairer: : 1945 Requested By: Gela Webber Order Number: [id number] Abhishek MD: Fidencio Dupree M.D. Measurements Intervals [place] Rate: 74 P: 64 WV: 166 QRS: 18 QRSD: 80 T: 17 QT: 378 QTc: 420 Interpretive Statements SINUS RHYTHM WITH OCCASIONAL SUPRAVENTRICULAR PREMATURE COMPLEXES Compared to ECG 02/19/2021 12:57:58 No significant changes Electronically Signed On 07-16-2023 12:40:33 CDT by Fidencio Dupree M.D. [email or web address] [id number]
[2023-07-16] MEDS: sodium chloride 0.9% 1,000 ML 30 ML IV (08:09)
--- NOTE | 2023-07-16 08:34 | ANES.PREANE2 ---
Pre-Anesthetic Assessment Height/Weight: Height 1.68 m Weight 71.668 kg Temp Pulse Resp BP Pulse Ox O2 Del Method 97.0 F L 76 16 128/77 97 Room Air 07/16/23 07:54 07/16/23 07:54 07/16/23 07:54 07/16/23 07:54 07/16/23 07:54 07/16/23 07:54 Operation Date: 07/16/23 09:00 Proposed Procedures p Bronchoalveolar Lavage(Not Applicable) - Kenny Choi MD Familial anesthetic complications: None Was Beta Zoran taken within 24 hours: N/A Was Clonidine taken within 24 hours: N/A Last intake: Intake Last Liquid Date 07/15/23 Last Liquid Time 22:00 Last Solid Date 07/15/23 Last Solid Time 19:00 Social No alcohol and No tobacco Exam alert, oriented x 3, clear to auscultation bilaterally and regular rate & rhythm Airway Mallampati: Class I Dentition: other (missing) Pulmonary Chronic Obstructive Pulmonary Disease nodule, bronchiectasis, pneumonia GI Gastroesophageal Reflux Disease Anesthetic Plan ASA status: 3 Anesthesia: General Risk of > 500 ml blood loss (7ml/kg in children): No Medications/Allergies Home Medications Medication Instructions Recorded Confirmed Last Taken Type cholecalciferol (vitamin D3) 50 50 mcg PO DAILY 02/19/21 07/16/23 1 Month Ago History mcg (2,000 unit) capsule ~06/15/23 mucus clearing device #1 ea 07/13/21 07/02/23 Unknown Rx zinc gluconate 50 mg tablet 50 mg PO DAILY PRN other 02/06/22 07/16/23 6 Months Ago History ~01/14/23 vitamin B complex (B 1 tab PO DAILY 04/17/22 07/16/23 1 Month Ago History Complex-Vitamin B12 tablet) ~06/15/23 benzonatate 100 mg capsule 100 mg PO TID PRN cough #30 caps 06/14/23 07/16/23 07/11/23 Rx guaifenesin 600 mg tablet, 600 mg PO BID 07/11/23 07/11/23 07/15/23 History extended release 12 hr (Mucinex) isosorbide mononitrate 30 mg 30 mg PO DAILY 07/11/23 07/11/23 07/16/23 06:00 History tablet,extended release 24 hr Allergies Allergy/AdvReac Type Severity Reaction Status Date / Time No Known Allergies Allergy Verified 07/02/23 09:17 Current Medications Generic Name Dose Route Start Last Admin Trade Name Macrina PRN Reason Stop Dose Admin Sodium Chloride 1,000 mls @ 30 mls/hr 07/16/23 08:00 07/16/23 08:09 Sodium Chloride 0.9% IV 07/17/23 07:59 30 mls/hr .Q24H RJ Administration PFSH Anesthesia Medical History Bronchiectasis COVID-19 No significant past medical history Surgical History History of bladder surgery Bladder mesh placement - 02/10/19 History of appendectomy H/O: hysterectomy Family History Brother CAD (coronary artery disease) Cancer Stroke Daughter Hypertension Sister Hypertension Son Lung disease Denies family history of Diabetes Clotting disorder Dementia Hyperlipidemia Psychiatric illness Chronic kidney disease (CKD) Suicide Anesthesia complication Bleeding disorder Family history of premature coronary artery disease Social History Smoking and tobacco/nicotine status: never used tobacco/nicotine Second hand smoke exposure: Yes Alcohol intake: never Substance/Drug Use: never Additional social history: Goes by Nyla Casanova Anesthesia Cardiac Studies: Echocardiogram 12/01/21 Sestamibi Stress Test (Cardiology) 01/03/22
--- NOTE | 2023-07-16 08:52 | W.PM.OPSUD ---
Surgery/Procedure H&P Update DATE OF PROCEDURE: July 16, 2023 DATE H&P PERFORMED: 07/02/23 H&P UPDATE INFORMATION: I have reviewed H&P completed within last 30 days, I have examined patient prior to procedure and No changes to prior documentation CHANGES TO PREVIOUS DOCUMENTATION: None PREOP DIAGNOSIS: Bronchiectasis rule out MAC PRIMARY INDICATION FOR PROCEDURE: Bronchiectasis rule out MAC PLANNED PROCEDURE: Operation Date: 07/16/23 09:00 Proposed Procedures p Bronchoalveolar Lavage(Not Applicable) - Kenny Uriarte DatarMD
[2023-07-16] MEDS: lidocaine 1% INJ 10 mL (per mL) XX (09:53)
--- NOTE | 2023-07-16 10:30 | P.OP_ITS ---
Operative Report Date of procedure: July 16, 2023 Procedure done: Dx Bronchoscope w/Washings or airway inspection Dx Bronchoscope w/BAL Bronchoscopy w/ therapeutic aspiration of the tracheobronchial tree (clearance of airway secretions, removal of mucus plugs) Surgeon: Kenny Choi MD Brief History: 75-year-old female with past medical history of chronic cough, COVID 19 in D ecember 2020, referred by PCP Dr. Mesa for chronic cough x 2 years. 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 Reports daily productive cough with clear/white sputum to yellow green; Sputum culture 05/09/2021 strep agalactiae group B-patient was treated with Augmentin and levofloxacin; another episode in last week June 2021 treat with another course of levaquin. AFB stain and mycobacterial culture 07/14/2021-no MAC isolated. -HRCT 06/30/2021: Showed pulmonary fibrosis and bronchiectasis especially in the right, no new infiltrates in the lungs. Benign calcified granulomatous disease. Mild coronary artery calcification - repeat CT chest 05/22/23: Interstitial thickening with pulmonary fibrosis and bronchiectasis. The previously described nodule in the RIGHT upper lobe corresponds to an area of interstitial reticular nodular thickening. No new mass or increasing size of any nodule since the CT of 06/30/2021. - Last 2 months she has been on antibx for respiratory infections She is scheduled for am going to schedule for bronchoscopy to get Bronchoalveolar lavage for Bacterial cultures and Mycobacterial cultures to rule out MAC Procedure: Dx Bronchoscope w/Washings or airway inspection Dx Bronchoscope w/BAL Bronchoscopy w/ therapeutic aspiration of the tracheobronchial tree (clearance of airway secretions, removal of mucus plugs) Pre-Operative Diagnosis: Brochiectasis - rule out MAC infection Post-Operative Diagnosis: Same Indication: recurrent exacerabtions of bronchiectasis Consent: Consents were obtained from patient and placed in the chart Pre-procedure Evaluation: Patient was evaluated clinically and ancillary testing reviewed. The risk of having active MTB infection is very low in my clinical judgement. ASA: 3 Time out: Performed by the procedure team and nursing staff. Vent support maintained on Fio2 100. Anesthesia: General anesthesia by anesthesia team. A laryngeal mask airway was placed for ventilatory support Local anesthesia: The alexandr in the right and left mainstem bronchi were anesthetized with 1% lidocaine, 6 mL. Summary of Significant Findings: -Bronchoscope passed through ET tube used for initial inspection and airway clearance. The scope was advanced through the ET tube. The lower trachea mucosa appeared normal, no endotracheal lesion was seen. The alexandr was sharp. The alexandr, the right and left mainstem bronchi are anesthetized with 1% lidocaine. In a systematic manner bilateral bronchial tree was then examined. The bronchoscope was advanced into the left mainstem bronchus. The mucosa appeared normal with no endobronchial lesions. The left upper lobe, lingula and left lower lobe bronchi were examined up to the third subsegmental level and no abnormalities were identified. Mucosa appeared normal with no endobronchial lesion. There were some clear secretions in lower lobe-which were suctioned right away. There is no evidence of active bleeding. The bronchoscope was then introduced into the right mainstem bronchus. The right upper lobe, right middle lobe and right lower lobe bronchi were examined up to the third subsegmental level and no abnormalities were identified. The mucosa appeared normal with no endobronchial lesions, active bleeding. There we re some secretions which were suctioned right away. There is no evidence of active bleeding. The bronchoscope was wedged at the entrance of medial segment of right middle lobe-instilled 30 cc normal saline and aspirated 17 cc bronchoalveolar lavage. Bronchoscope was then removed and the procedure terminated. Estimated Blood Loss: None Specimens: Bronchoalveolar lavage from right lower lobe sent for cultures, fluid analysis, mycobacterial cultures, fungal cultures Complications:None; patient tolerated the procedure well. Disposition: Patient can be discharged home. Surgeon: Kenny Choi MD, [facility] Pulmonary critical Care Medicine [facility] Related Problem List Diagnoses (1) Bronchiectasis: (2) Chronic cough:
--- NOTE | 2023-07-16 11:00 | ANE.PACU2 ---
Inpatient post-anesthesia follow up: Airway intact: Yes Vital signs: Temperature 97 F Pulse Rate 68 Respiratory Rate 18 Blood Pressure 138/69 Pulse Oximetry 96 Oxygen Delivery Me thod Room Air Oxygen Flow Rate Fraction of Inspir ed Oxygen Hydration adequate: Yes Nausea and vomiting: No Pain level: 1 Mental status: Baseline
[2023-07-16 12:14] LABS: Cyto Order Verification Order Verified
[2023-07-17 13:17] LABS: Lymphoma Profile (BBPL) See Report
== END 2023-07-16 11:04 | disposition home or self-care (01) ==
PROVIDERS: PCP Family Medicine; Visit Provider Internal Medicine Pulmonary Disease
PROC: (CPT 31624; principal; 2023-07-16 09:00)
DX: R05.3 Chronic cough (principal); Z86.16 Personal history of COVID-19; Z77.22 Contact with and (suspected) exposure to environmental tobacco smoke (acute) (chronic); J44.9 Chronic obstructive pulmonary disease, unspecified; K21.9 Gastro-esophageal reflux disease without esophagitis
CPT/HCPCS: 31624; 31645; 87015; 87070; 87102; 87116; 87205; 87206; 87801; 88112; 88184; 88185; 93005; J2704; J7030

== ENCOUNTER → 2023-09-26 09:15 | Outpatient (BNVA) | payer MEDICARE, SELFPAY | PROVIDERS: PCP Family Medicine; Referring Provider Family Medicine; Visit Provider Internal Medicine Critical Care Medicine | DX: R05.3 Chronic cough (principal); J47.9 Bronchiectasis, uncomplicated; K21.9 Gastro-esophageal reflux disease without esophagitis; K44.9 Diaphragmatic hernia without obstruction or gangrene; Z91.89 Other specified personal risk factors, not elsewhere classified | CPT/HCPCS: 99214 ==

== ENCOUNTER 2024-07-29 11:17 | Outpatient (CLI) | payer MEDICARE, SELFPAY ==
--- NOTE | 2024-07-29 11:31 | XR_ITS ---
WS: [id number] Lumbar spine, AP and lateral views, 07/29/2024 Clinical Data: Lumbar radiculopathy Comparison: None. Findings: No compression fractures or subluxation is seen. There is disc narrowing at L4- L5. There is osteoarthritic spurring L1-L4. The transverse processes and SI joints are normal. There is a large amount of fecal material in the colon. XR/XR lumbar spine 2-3V* [id number] Impression: 1. Degenerative disc narrowing at L4-L5 and osteoarthritis L1-L4. 2. Large amount of fecal material in the colon.
== END 2024-07-29 11:18 | disposition home or self-care (01) ==
PROVIDERS: PCP Family Medicine; Visit Provider Family Medicine
DX: M54.16 Radiculopathy, lumbar region (principal); M47.896 Other spondylosis, lumbar region; R93.89 Abnormal findings on diagnostic imaging of other specified body structures; M51.362 Other intervertebral disc degeneration, lumbar region with discogenic back pain and lower extremity pain
CPT/HCPCS: 72100

== ENCOUNTER 2024-08-06 13:11 | Outpatient (CLI) | payer MEDICARE, SELFPAY ==
--- NOTE | 2024-08-06 13:45 | MR_ITS ---
WS: [id number] MRI LUMBAR SPINE NONCONTRAST TECHNIQUE: Sagittal T1, T2 and STIR imaging. Axial T1 and T2 imaging. CLINICAL INFORMATION: Lumbar radiculopathy COMPARISON: None. FINDINGS: Mild lumbar curve. No acute compression. Disc extrusion L4-5 extending into the LEFT subarticular recess with impingement of traversing LEFT L5 nerve root. Disc material extends to the mid L5 vertebral body. L1-L2: Annular bulging with a shallow LEFT subarticular protrusion. Impingement LEFT subarticular recess and traversing LEFT L2 nerve root. L2-L3: Mild annular bulging. Mild facet arthropathy. Spinal canal and foramen are patent. L3-L4: Mild annular bulging. Mild central canal stenosis. Narrowing of the subarticular recess. Moderate facet arthropathy. L4-L5: LEFT subarticular disc extrusion fills the subarticular recess with inferior extension of disc material to the mid L5 level. Mild to moderate central canal stenosis. Moderate facet arthropathy. L5-S1: Mild annular bulging. Moderate facet arthropathy. Spinal canal and foramen are patent. Visualized pelvic bony structures: Normal. Paravertebral soft tissues: Normal. MR/MR lumbar spine wo con* [id number] IMPRESSION: 1. Disc extrusion L4-5 with inferior extension of disc material to the mid L5 level. Mild to moderate central canal stenosis with impingement of traversing L EFT L5 nerve root. 2. Shallow LEFT paracentral protrusion L1-2 impinges the LEFT subarticular rec ess. 3. Mild central canal stenosis L3-4 with diffuse disc bulge and facet arthropa thy with ligamentum flavum hypertrophy. Moderate facet arthropathy. 4. Moderate facet arthropathy L3-L5.
== END 2024-08-06 13:12 | disposition home or self-care (01) ==
LOC: RAD 13:13
PROVIDERS: PCP Family Medicine; Visit Provider Family Medicine
DX: M54.16 Radiculopathy, lumbar region (principal); M47.896 Other spondylosis, lumbar region
CPT/HCPCS: 72148

== ENCOUNTER → 2024-10-22 10:38 | Outpatient (BNVA) | payer MEDICARE, SELFPAY | PROVIDERS: PCP Family Medicine; Visit Provider Family Medicine | DX: U07.1 COVID-19 (principal) | CPT/HCPCS: 87426 ==

== ENCOUNTER 2024-11-13 10:31 | Inpatient (IN) | payer MEDICARE, SELFPAY ==
[2024-11-13] VITALS (12 sets, daily range): BP systolic 103–127; BP diastolic 46–72; PULSE 67–86; RESP 16–27; TEMP 36.6–37.4; O2SAT 92–100; BMI 26.3
--- NOTE | 2024-11-13 10:32 | XR_ITS ---
WS: [id number] XR chest 1V portable [id number] REASON FOR EXAM: cp FINDINGS: Mild tortuosity of the aortic arch with calcification. Mild tortuosity of the thoracic aorta. No significant central pulmonary venous congestion. Compared to the previous examination of 04/23/2023 there is now reticular and groundglass opacity in the left lower and mid lateral lung. Unknown chronicity. No other significant abnormality compared to the previous examination. XR/XR chest 1V portable [id number] IMPRESSION: Right lung opacities of unknown chronicity. May represent acute/subacute pneumo nitis.
--- NOTE | 2024-11-13 10:32 | ECG_ITS ---
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 Measurements Intervals [place] Rate: 83 P: 22 MS: 148 QRS: -2 QRSD: 82 T: 4 QT: 347 QTc: 410 Interpretive Statements SINUS RHYTHM Compared to ECG 07/16/2023 07:58:06 No significant changes Electronically Signed On 11-14-2024 14:35:24 CDT by Patricia Mccabe M.D. [email or web address]
--- OUTSIDE RECORDS SUMMARY | 2024-11-13 10:36 | XMS_ITS | Clinical Summary ---
Author Organization [facility] Address [address] 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 Active azithromycin (ZITHROMAX) 500 mg tablet Take 1 Tablet (500 mg) by mouth daily for 5 days. 5 Tablet 10/28/2024 11/03/19 25 amoxicillin-clav ulanate (AUGMENTIN) 875-125 mg tablet Take 1 Tablet by mouth every 12 hours for 7 days. 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, posthysterectomy 01/14/2019 04/09/2019 Encounters Date Type Department Care Team Description 11/03/2024 External Device Data [facility] ABSTRACTION Provider, Abstract 11/03/2024 External Device Data [facility] ABSTRACTION Provider, Abstract 11/03/2024 External Device Data [facility] ABSTRACTION Provider, Abstract 10/28/2024 4:52 PM CDT - 10/28/2024 6:54 PM CDT Emergency [facility] Emergency Medicine [address] [place] [address] Cholo Quinn MD Community acquired bacterial pneumonia (Primary Dx) Discharge Disposition: Home or Self Care 10/28/2024 Travel from Last 3 Months Immunizations Immunization Administration Dates Next Due (PREVNAR 13)(6 WKS UP) PNEUM OCOCCAL CONJUGATE (PCV13) 0.5 ML, IM 02/11/2019 Influenza Seasonal Unspecified Formulation IM Family History Medical History Relation Name Comments Breast Cancer Neg Hx Ovarian Cancer Neg Hx Social History Tobacco Use Types Packs/Day Years Used Date Smoking Tobacco: Never Smokeless Tobacco: Never Alcohol Use Standard Drinks/Week Comments Never 0 (1 standard drink = 0.6 oz pur e alcohol) Feeling Safe Answer Date Recorded Are you in a relationship wi th someone who hurts you emotionally and/or physically? 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 Gender Identity Not on file Sexual Orientation Not on file Last Filed Vital Signs Vital Sign Reading Time Taken Comments Blood Pressure 129/60 10/28/2024 6:45 PM CDT Pulse 64 10/28/2024 6:45 PM CDT Temperature 36.1 C (96.9 F) 10/28/2024 4:58 PM CDT Respiratory Rate 20 10/28/2024 6:45 PM CDT Oxygen Saturation 96% 10/28/2024 6:45 PM CDT Inhaled Oxygen Concentration - - Weight 76.7 kg (169 lb) 10/28/2024 4:58 PM CDT Height 167.6 cm (5' 6 ) 10/28/2024 4:58 PM CDT Body Mass Index 27.28 10/28/2024 4:58 PM CDT Plan of Treatment Health Maintenance Due Date Last Done Comments DTAP/TDAP/TD VACCINES (1 - Tdap) 10/02/1963 ZOSTER VACCINE (1 of 2) 1994 OSTEOPOROSIS SCREENING 2009 RSV VACCINE (60+ or ) (1 - 1-dose 75+ series) 10/02/2019 PNEUMOCOCCAL VACCINE 50+ YEA RS (2 of 2 - PCV20 or PCV21) 02/12/2020 02/11/2019 INFLUENZA VACCINE (#1) 2024 11/24/2018 Medical Devices Implanted Type Area Fur Comber Device Identifier Shelf Expiration Date Model / Serial / Lot Mesh Restorelle Y Shape /4 [id number] - [id number] Implanted:02/10 by Daylin Brown MD (Quantity not on file) Mesh N/A: Pelvis [facility] 10/14/2021 [id number] / / [id number] Procedures Procedure Name Priority Date/Time Associated Diagnosis Comments CTA CHEST W AND/OR WO CONTRAST Stat 10/28/2024 5:46 PM CDT EKG 12-LEAD Stat 10/28/2024 4:57 PM CDT TSH Stat 10/28/2024 4:54 PM CDT TROPONIN BASELINE, 5TH GEN Stat 10/28/2024 4:54 PM CDT COMPREHENSIVE METABOLIC PANEL Stat 10/28/2024 4:54 PM CDT CBC WITH DIFFERENTIAL Stat 10/28/2024 4:54 PM CDT from Last 3 Months Results * CTA CHEST W AND/OR WO CONTRAST (10/28/2024 5:46 PM CDT) Anatomical Region Laterality Modality Chest Computed Tomogra phy 10/28/2024 5:30 PM CDT Impressions 10/28/2024 6:39 PM CDT IMPRESSION: Please see below. Exam: CTA CHEST W AND/OR WO CONTRAST Date/Time of Exam: 10/28/2024 5:46 PM Reason For Exam: Pulmonary embolism (PE) suspected, high prob. Diagnosis: See Reason for Exam. Technique: CTA of the chest was performed prior to and/or following the administration of intravenous contrast. Post-processing was performed, including sagittal and coronal reformations and 3-D reconstruction. Contrast (if used): 95 mL Isovue-300 Findings: Comparison is made to noncontrast CT of the chest from 01/21/2019. There is no pneumothorax. There is moderate bilateral emphysematous change. There is chronic pleural and parenchymal thickening in the right apex. There are moderate fibrotic changes throughout both lungs. There is chronic bilateral pulmonary scarring. Bilateral tree-in-bud opacities are again noted. There are now numerous pulmonary nodules on the right. The largest on the right is probably a 1.2 x 1.6 cm right upper lobe nodule. No pathologic axillary adenopathy is noted. There are prominent but not clearly pathologically enlarged mediastinal and hilar lymph nodes. No mediastinal fluid collections are noted. No significant abnormality of the thoracic aorta is appreciated. The pulmonary arteries are adequately opacified with contrast. No pulmonary emboli are noted. Mild cardiomegaly is present. A vague hypodensity is again noted in the spleen and is unchanged from the prior study. The bony structures are osteopenic. No acute abnormality of the bony thorax or thoracic spine is noted. IMPRESSION: 1. No pulmonary emboli noted. 2. Chronic emphysematous changes, fibrotic changes and bilateral tree in bud opacities are again noted. 3. There are now multiple pulmonary nodules on the right measuring up to 1.6 cm in size. This may be neoplastic, infectious or inflammatory in etiology. Follow-up is recommended. Narrative Procedure Note Jeanine Mcdaniel MD - 10/28/2024 IMPRESSION: Please see below. Exam: CTA CHEST W AND/OR WO CONTRAST Date/Time of Exam: 10/28/2024 5:46 PM Reason For Exam: Pulmonary embolism (PE) suspected, high prob. Diagnosis: See Reason for Exam. Technique: CTA of the chest was performed prior to and/or following the administration of intravenous contrast. Post-processing was performed, including sagittal and coronal reformations and 3-D reconstruction. Contrast (if used): 95 mL Isovue-300 Findings: Comparison is made to noncontrast CT of the chest from 01/21/2019. There is no pneumothorax. There is moderate bilateral emphysematous change. There is chronic pleural and parenchymal thickening in the right apex. There are moderate fibrotic changes throughout both lungs. There is chronic bilateral pulmonary scarring. Bilateral tree-in-bud opacities are again noted. There are now numerous pulmonary nodules on the right. The largest on the right is probably a 1.2 x 1.6 cm right upper lobe nodule. No pathologic axillary adenopathy is noted. There are prominent but not clearly pathologically enlarged mediastinal and hilar lymph nodes. No mediastinal fluid collections are noted. No significant abnormality of the thoracic aorta is appreciated. The pulmonary arteries are adequately opacified with contrast. No pulmonary emboli are noted. Mild cardiomegaly is present. A vague hypodensity is again noted in the spleen and is unchanged from the prior study. The bony structures are osteopenic. No acute abnormality of the bony thorax or thoracic spine is noted. IMPRESSION: 1. No pulmonary emboli noted. 2. Chronic emphysematous changes, fibrotic changes and bilateral tree in bud opacities are again noted. 3. There are now multiple pulmonary nodules on the right measuring up to 1.6 cm in size. This may be neoplastic, infectious or inflammatory in etiology. Follow-up is recommended. Cholo Quinn MD CT ORDERABLES Final Result * EKG 12-LEAD (10/28/2024 4:57 PM CDT) Narrative Cholo Quinn MD - 10/28/2024 4:57 PM CDT Cholo Quinn MD 10/28/2024 6:54 PM EKG 12-LEAD Date/Time: 10/28/2024 4:57 PM Performed by: Cholo Quinn MD Authorized by: Cholo Quinn MD ECG interpreted by ED Physician in the absence of a distance learning coordinator: yes Rate: ECG rate assessment: age appropriate Rhythm: Rhythm Origin: sinus [place]: QRS axis: Left Intervals: normal QRSTT: QRSTT changes: No Cholo Quinn MD ECG ORDERABLES Final Result * (ABNORMAL) TROPONIN BASELINE, 5TH GEN (10/28/2024 4:54 PM CDT) TROPONIN T, BASELINE 5TH GEN 11(H) <=10 ng/L 10/28/2024 5:43 PM CDT [facility] Blood BLOOD SPECIMEN / Unknown Venipuncture / Unknown 10/28/2024 4:54 PM CDT 10/28/2024 5:12 PM CDT Narrative [facility] - 10/28/2024 5:43 PM CDT Troponin elevated. Cholo Quinn MD CHEMISTRY ORDERABLES Final Result [facility] CLIA # [id number] [address] [place] [id number] * (ABNORMAL) CBC WITH DIFFERENTIAL (10/28/2024 4:54 PM CDT) WBC 25.5(H) 4.0 - 10.0 K/uL 10/28/2024 5:21 PM CDT [facility] RBC 4.55 3.93 - 5.22 M/uL 10/28/2024 5:21 PM CDT [facility] HEMOGLOBIN 13.4 11.2 - 15.7 g/dL 10/28/2024 5:21 PM CDT [facility] HEMATOCRIT 39.1 34.1 - 44.9 % 10/28/2024 5:21 PM CDT [facility] MCV 85.9 79.4 - 94.8 fL 10/28/2024 5:21 PM CDT [facility] MCH 29.5 25.6 - 32.2 pg 10/28[facility]2024 5:[facility] M[facility] 34.3 32.2 - 35.5 g/dL 10/28/2024 5:21 PM CDT [facility] RDW 13.7 11.0 - 14.5 % 10/28/2024 5:21 PM [facility] RDW-STDEV 43.0 36.9 - 56.9 fL 10/28/2024 5:21 PM [facility] PLATELETS 262 163 - 337 K/uL 10/28/2024 5:21 PM T [facility] MPV 11.1 10.0 - 14.8 fL 10/28/2024 5:21 PM CDT [facility] NEUTROPHILS 83(H) 34 - 71 % 10/28/2024 5:21 PM CDT [facility] LYMPHOCYTES 7(L) 19 - 52 % 10/28/2024 5:21 PM [facility] MONOCYTES 7 5 - 13 % 10/28/2024 5:21 PM [facility] EOSINOPHILS 0(L) 1 - 6 % 10/28/2024 5:21 PM T [facility] BASOPHILS 0 0 - 1 % 10/28/2024 5:21 PM T [facility] IMMATURE GRANULOCYTES 3 % 10/28/2024 5:21 PM T [facility] NEUTROPHIL ABSOLUTE 21.04(H) 1.56 - 6.13 K/uL 10/28/2024 5:21 PM [facility] LYMPHOCYTE ABSOLUTE 1.80 1.20 - 3.40 K/uL 10/28/2024 5:21 PM [facility] MONOCYTE ABSOLUTE 1.85(H) 0.24 - 0.36 K/uL 10/28/2024 5:21 PM [facility] EOSINOPHIL ABSOLUTE 0.00(L) 0.04 - 0.36 K/uL 10/28/2024 5:21 PM T [facility] BASOPHILS ABSOLUTE 0.06 0.01 - 0.08 K/uL 10/28/2024 5:21 PM [facility] IMMATURE GRANULOCYTES ABSOLUTE 0.70 K/uL 10/28/2024 5:21 PM [facility] Blood BLOOD SPECIMEN / Unknown Venipuncture / Unknown 10/28/2024 4:54 PM CDT 10/28/2024 5:12 PM CDT us Cholo Quinn MD HEMATOLOGY ORDERABLES Final Result [id number] [address] [place] [address] [id number] * TSH (10/28/2024 4:54 PM CDT) TSH 3.04 0.27 - 4.20 uIU/mL 10/28/2024 5:43 PM [facility] Blood BLOOD SPECIMEN / Unknown Venipuncture / Unknown 10/28/2024 4:54 PM CDT 10/28/2024 5:12 PM CDT Cholo Quinn MD CHEMISTRY ORDERABLES Final Result [facility] CLIA # [id number] [address] [place] [id number] * (ABNORMAL) COMPREHENSIVE METABOLIC PANEL (10/28/2024 4:54 PM CDT) SODIUM 135(L) 136 - 145 mmol/L 10/28/2024 5:43 PM [facility] POTASSIUM 3.6 3.5 - 5.1 mmol/L 10/28/2024 5:43 PM [facility] CHLORIDE 100 98 - 107 mmol/L 10/28/2024 5:43 PM [facility] CO2 23 22 - 29 mmol/L 10/28/2024 5:43 PM [facility] CALCIUM 8.6(L) 8.8 - 10.2 mg/dL 10/28/2024 5:43 PM [facility] BUN 20 8 - 23 mg/dL 10/28/2024 5:43 PM [facility] CREATININE 0.81 0.51 - 0.95 mg/dL 10/28/2024 5:43 PM [facility] Comment:The GFR result is no t clinically significant on patients <18 or >70 years of age. GLUCOSE 153(H) 74 - 99 mg/dL 10/28/2024 5:43 PM [facility] TOTAL PROTEIN 7.1 6.6 - 8.7 g/dL 10/28/2024 5:43 PM [facility] ALBUMIN 3.5 3.5 - 5.2 g/dL 10/28/2024 5:43 PM [facility] BILIRUBIN TOTAL 0.3 0.0 - 1.2 mg/dL 10/28/2024 5:43 PM CDT [facility] ALKALINE PHOSPHATASE 88 35 - 104 U/L 10/28/2024 5:43 PM CDT [facility] AST 15 0 - 35 U/L 10/28/2024 5:43 PM CDT [facility] ALT 10 0 - 35 U/L 10/28/2024 5:43 PM T [facility] GFR >60 mL/min/1.7 3 sq meter 10/28/2024 5:43 PM T [facility] Comment:eGFR calculated with 2020 CKD-EPI equation. Vegetarian diet, extremely high or low muscle mass, and may affect results. Cystatin C with Glomerular Filtration Rate is a suitable alternative for these patients. ANION GAP 12 5 - 20 mmol/L 10/28/2024 5:43 PM [facility] Blood BLOOD SPECIMEN / Unknown Venipuncture / Unknown 10/28/2024 4:54 PM CDT 10/28/2024 5:12 PM CDT Cholo Quinn MD CHEMISTRY ORDERABLES Final Result [facility] CLIA # [id number] [address] [place] [phone] from Last 3 Months Insurance [facility] [id number] * Guarantor: JOSE ANTONIO OROSCO Account Type Relation to Patient Date of Phone Billing Address Personal/Family [address] [place] [address] [employer] (INTERNAL) [facility] Care Teams 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
--- NOTE | 2024-11-13 10:53 | CT_ITS ---
WS: [id number] CT CHEST ANGIOGRAPHY WITH REFORMATS HISTORY: sob TECHNIQUE: Contiguous axial images are obtained through the chest during arterial injection of intravenous contrast. Images are reconstructed to evaluate the pulmonary arteries. MIP imaging also reviewed. All CT scans at [facility] use at least one of these dose optimization techniques: automated exposure control; mA and/or kV adjustment per patient size (includes targeted exams where dose is matched to clinical indication); or iterative reconstruction. CONTRAST: Omnipaque 350; 100 mL IV. DLP: 300.21 mGy.cm COMPARISON: 10/28/2024, 05/22/2023, 06/30/2021 Good opacification of the pulmonary artery. No central pulmonary emboli. Good opacification of the pulmonary artery. Beyond the segmental branches the opacification is limited. Normal size pulmonary artery. No RIGHT heart strain. Heart is normal size with no pericardial effusion. Mild atherosclerosis aorta. Numerous spiculated masses with small scattered nodules and tree-in-bud airspace disease is noted bilaterally. Dense area of consolidation is developed in the RIGHT lower lobe since 10/28/2024. Numerous spiculated mass some of these have central cavitation and are irregular shaped in both lungs. Some of these pulmonary nodules are increasing in size. There has mild pleural thickening at the lung bases. Increasing mediastinal and hilar lymphadenopathy since 10/28/2024. Largest lymph node superior RIGHT hilum is 2.1 cm as compared to 1.7 cm on the prior study. Increasing lymphadenopathy in the AP window, subcarinal and hilar regions bilaterally. No axillary lymph nodes. No osseous destructive lesions. Upper abdomen is negative. Small hiatal hernia. CT/CT angio chest PE protcl [id number] IMPRESSION: 1. No pulmonary embolism. 2. Progression of multi lobar consolidations with scattered nodules and cavita ry nodules throughout both lungs which have progressed since 10/28/2024. Pneumon ia and septic emboli should be considered. Due to the rapid progression thought less likely to be neoplastic. 3. Progression of consolidation RIGHT lower lobe is new since 10/28/2024. 4. Increase in mediastinal and hilar lymphadenopathy since 10/28/2024.
--- NOTE | 2024-11-13 10:54 | W.ED.SOB ---
HPI - SOB/Dyspnea General: Chief Complaint: Shortness of Breath/Dyspnea Stated Complaint: SOB / Chest pain Time Seen by Provider: 11/13/24 10:41 Source: patient Mode of arrival: ambulatory Limitations: no limitations History of Present Illness: HPI Narrative: 79-year-old female states that she is diagnosed with COVID a few weeks ago states she then developed pneumonia and was placed on steroids and antibiotics she states that her cough had improved and her shortness of breath improved until Saturday she started having worsening shortness of breath. States that she has been having sharp chest pains on the right side as well since Saturday states seems to be worse with inspiration she denies any fever denies any vomiting Associated symptoms: Reports chest pain Related Data Home Medications ?Medication ?Instructions ?Recorded ?Confirmed cholecalciferol (vitamin D3) 50 50 mcg PO DAILY 02/19/21 11/13/24 mcg (2,000 unit) capsule zinc gluconate 50 mg tablet 50 mg PO DAILY PRN other 02/06/22 11/13/24 vitamin B complex (B 1 tab PO DAILY 04/17/22 11/13/24 Complex-Vitamin B12 tablet) guaifenesin 600 mg tablet, 600 mg PO DAILY 11/21/23 11/13/24 extended release 12 hr (Mucinex) loratadine 10 mg tablet 10 mg PO DAILY 11/21/23 11/13/24 Previous Rx's ?Medication ?Instructions ?Recorded mucus clearing device #1 ea 07/13/21 Oxygen at 2L/min via nc #1 ea 11/14/23 isosorbide mononitrate 30 mg See Rx Instructions .Route 11/15/23 tablet,extended release 24 hr .COMPLEX #90 tabs albuterol sulfate 90 mcg/actuation 2 puff inhalation Q6H PRN 12/03/23 aerosol inhaler shortness of breath or wheezing #8.5 grams ciprofloxacin 0.3 %-dexamethasone 4 drp otic (ear) BID 7 days #7.5 mL 04/09/24 0.1 % ear drops,suspension cyclobenzaprine 10 mg tablet 10 mg PO TID PRN muscle spasm #30 07/23/24 tabs gabapentin 300 mg capsule 300 mg PO TID #90 caps 08/04/24 aspirin 81 mg tablet 81 mg PO DAILY #30 tabs 10/22/24 levofloxacin 500 mg tablet 500 mg PO DAILY #10 tabs 11/05/24 prednisone 20 mg tablet 40 mg (2 x 20 mg) PO DAILY #10 tabs 11/05/24 Allergies Allergy/AdvReac Type Severity Reaction Status Date / Time No Known Allergies Allergy Verified 10/26/24 08:44 Review of Systems Card: Reports: chest pain Resp: Reports: dyspnea PFSH ED PFSH: Medical History Bronchiectasis COVID-19 No significant past medical history Surgical History History of bladder surgery Bladder mesh placement - 02/10/19 History of appendectomy H/O: hysterectomy Family History Brother CAD (coronary artery disease) Cancer Stroke Daughter Hypertension Sister Hypertension Son Lung disease Denies family history of Diabetes Clotting disorder Dementia Hyperlipidemia Psychiatric illness Chronic kidney disease (CKD) Suicide Anesthesia complication Bleeding disorder Family history of premature coronary artery disease Social History Smoking and tobacco/nicotine status: never used tobacco/nicotine Second hand smoke exposure: Yes Alcohol intake: never Substance/Drug Use: never Additional social history: Goes by Nyla Physical Exam Const: COMMON NORMALS: no acute distress, patient oriented x3 and healthy appearing HENMT: COMMON NORMALS: normocephalic and atraumatic HEAD & SCALP: normocephalic and atraumatic Eye: COMMON NORMALS: conjunctivae normal CONJUNCTIVA: Yes conjunctivae normal Neck/C-Spine: COMMON NORMALS: full ROM and supple Chest: COMMONS NORMALS: normal inspection of the chest Resp: COMMON NORMALS: normal respiratory effort, No retractions, No use of accessory muscles and clear to auscultation bilaterally AUSCULTATION: clear to auscultation bilaterally Cardio: COMMON NORMALS: regular rate, regular rhythm and No murmurs present (Cardio) RATE: regular rate RHYTHM: regular rhythm Extremity: COMMON NORMALS: normal to inspection and full ROM Neuro: COMMON NORMALS: patient oriented x3, moves all extremities and no focal motor deficits Psych: COMMON NORMALS: mental status grossly normal, Normal thought process present and cooperative THOUGHT PROCESS: Normal thought process present Skin: COMMON NORMALS: no rashes or lesions noted and no wounds GENERAL SKIN EXAM: no rashes or lesions noted Course Vital Signs: Vital signs: Vital Signs Temperature 98.0 F 11/13/24 10:41 Pulse Rate 84 11/13/24 13:00 Respiratory Rate 18 11/13/24 11:11 Blood Pressure 127/46 11/13/24 13:00 Pulse Oximetry 100 11/13/24 13:00 Oxygen Delivery Me thod Nasal Cannula 11/13/24 13:00 Oxygen Flow Rate 2 11/13/24 13:00 MDM - SOB/Dyspnea Medical Decision Making Patient presents for shortness of breath along with chest pains hide spoke to her physician Dr. Mesa she had recently had COVID 2 weeks ago that developed into pneumonia she has been on outpatient antibiotics and steroids and has had worsening shortness of breath now did have concerns for possible pulmonary emboli which was ruled out with a CT of the chest that showed no signs of PE she does have worsening pneumonia this is likely causing her shortness of breath and pain patient will be admitted I spoke to Dr. Rico who is admitting this time did give her IV antibiotics here she has no signs of sepsis or septic shock. Medical Records I reviewed the patient's medical records. Lab Data I reviewed the patient's lab results. 11/13/24 11:03 11/13/24 11:03 Labs/Radiology: Radiology Impressions Chest X-Ray 11/13/24 10:32 IMPRESSION: Right lung opacities of unknown chronicity. May represent acute/subacute pneumonitis. Chest CTA 11/13/24 10:53 IMPRESSION: 1. No pulmonary embolism. 2. Progression of multi lobar consolidations with scattered nodules and cavitary nodules throughout both lungs which have progressed since 10/28/2024. Pneumonia and septic emboli should be considered. Due to the rapid progression thought less likely to be neoplastic. 3. Progression of consolidation RIGHT lower lobe is new since 10/28/2024. 4. Increase in mediastinal and hilar lymphadenopathy since 10/28/2024. Laboratory Results WBC 14.21 10^3/uL (3.29-11.43) H 11/13/24 11:03 RBC 4.16 10^6/uL (3.85-5.65) 11/13/24 11:03 Hgb 12.40 g/dL (11.27-16.99) 11/13/24 11:03 Hct 38.6 % (36-47) 11/13/24 11:03 MCV 92.8 fl (85-98) 11/13/24 11:03 MCH 29.8 pg (27-33) 11/13/24 11:03 MCHC 32.1 g/dL (30-55) 11/13/24 11:03 RDW 14.4 % (12.1-15.1) 11/13/24 11:03 Plt Count 454 10^3/cmm (157-399) H 11/13/24 11:03 MPV 9.7 fL (7.4-10.4) 11/13/24 11:03 Neut % (Auto) 69.8 % 11/13/24 11:03 Lymph % (Auto) 21.5 % 11/13/24 11:03 [place] % (Auto) 6.1 % 11/13/24 11:03 Eos % (Auto) 0.5 % 11/13/24 11:03 Baso % (Auto) 0.4 % 11/13/24 11:03 Neut # (Auto) 9.94 10^3/uL (1.8-7.7) H 11/13/24 11:03 Lymph # (Auto) 3.1 10^3/uL (0.8-4.8) 11/13/24 11:03 [place] # (Auto) 0.9 10^3/uL (0.2-0.9) 11/13/24 11:03 Eos # (Auto) 0.1 10^3/uL (0.0-0.8) 11/13/24 11:03 Baso # (Auto) 0.1 10^3/uL (0.0-0.1) 11/13/24 11:03 Nucleated RBC % (auto) 0 % 11/13/24 11:03 Nucleated RBCs # 0.0 /100WBC 11/13/24 11:03 PT 14.10 SECONDS (12.1-14.9) 11/13/24 11:03 INR 1.02 (0.8-1.2) 11/13/24 11:03 Sodium 136 mmol/L (136-145) 11/13/24 11:03 Potassium 3.8 mmol/L (3.5-5.1) 11/13/24 11:03 Chloride 96 mmol/L (98-107) L 11/13/24 11:03 Carbon Dioxide 22 mmol/L (22-29) 11/13/24 11:03 Anion Gap 21.8 (5-19) H 11/13/24 11:03 BUN 10 mg/dL (8-23) 11/13/24 11:03 Creatinine 0.8 mg/dL (0.5-0.9) 11/13/24 11:03 GFR Calculation Not Reportable 11/13/24 11:03 Glucose 113 mg/dL (65-115) 11/13/24 11:03 Calculated Osmolality 282 mOsm/kg (285-295) L 11/13/24 11:03 Calcium 9.0 mg/dL (8.5-10.5) 11/13/24 11:03 Total Bilirubin 0.5 mg/dL (0.15-1.2) 11/13/24 11:03 AST 17 U/L (0-32) 11/13/24 11:03 ALT 21 U/L (0-33) 11/13/24 11:03 Alkaline Phosphatase 113 U/L (35-105) H 11/13/24 11:03 Troponin T Baseline 18 ng/L (0-10) H 11/13/24 11:03 Troponin T 120 Minute 12.32 ng/L (0-10) H 11/13/24 12:34 Delta Troponin T -5.68 ABS# (0-10) L 11/13/24 12:34 NT-Pro-B Natriuret Pep 140 pg/mL (0-450) 11/13/24 11:03 Total Protein 6.8 g/dL (6.6-8.7) 11/13/24 11:03 Albumin 3.5 g/dL (3.5-5.2) 11/13/24 11:03 Globulin 3.3 g/dL (1.3-4.6) 11/13/24 11:03 All radiology interpretation(s) finalized by discharge EKG Data EKG 1: I personally reviewed and interpreted this EKG as follows: EKG Interpretation Date: 11/13/24 EKG interpretation time: 10:38 Interpretation: nsr hr [address] elevation qrs 82 qtc 387 Discharge Plan Discharge Patient Disposition: Admitted As Inpatient Clinical Impression: Community acquired pneumonia Qualifiers: Laterality: unspecified laterality Qualified Code(s): J18.9 - Pneumonia, unspecified organism Condition: Stable Coding Level of Care Code ED [employer] Worker for [facility]
[2024-11-13] MEDS: ondansetron 2 mg/ML SDV 2 mL 4 MG IVP (11:08)
[2024-11-13] MEDS: morphine 4 mg/mL SDV 1 mL IVP (11:10)
[2024-11-13 11:14] LABS: Hematocrit 38.6 % (36-47); Hemoglobin 12.40 g/dL (11.27-16.99); Mean Corpuscular HGB Conc 32.1 g/dL (30-55); Mean Corpuscular Hemoglobin 29.8 pg (27-33); Mean Corpuscular Volume 92.8 fl (85-98); Nucleated Red Blood Cells % 0 %; Platelet Count 454 10^3/cmm (157-399); Red Blood Count 4.16 10^6/uL (3.85-5.65); White Blood Count 14.21 10^3/uL (3.29-11.43)
[2024-11-13 11:24] LABS: INR 1.02 (0.8-1.2); Prothrombin Time 14.10 SECONDS (12.1-14.9)
[2024-11-13 11:28] LABS: Troponin(5th) Baseline 18 ng/L (0-10)
[2024-11-13 11:42] LABS: Alanine Aminotransferase 21 U/L (0-33); Albumin Level 3.5 g/dL (3.5-5.2); Alkaline Phosphatase 113 U/L (35-105); Anion Gap 21.8 (5-19); Aspartate Amino Transferase 17 U/L (0-32); Blood Urea Nitrogen 10 mg/dL (8-23); Calcium 9.0 mg/dL (8.5-10.5); Carbon Dioxide 22 mmol/L (22-29); Chloride 96 mmol/L (98-107); Creatinine Clr Calc Pharmacy 57.6888; Globulin 3.3 g/dL (1.3-4.6); Glucose 113 mg/dL (65-115); NT Pro B Type Natriuretic Pept 140 pg/mL (0-450); Osmolality Calculated 282 mOsm/kg (285-295); Potassium 3.8 mmol/L (3.5-5.1); Sodium 136 mmol/L (136-145); Total Protein 6.8 g/dL (6.6-8.7)
[2024-11-13] MEDS: iohexol 350 mg/mL 500 mL Btl (per mL) IV (12:22)
--- NOTE | 2024-11-13 12:32 | ECG_ITS ---
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 Measurements Intervals [place] Rate: 85 P: 44 [place]: 153 QRS: 24 QRSD: 86 T: 36 QT: 364 QTc: 434 Interpretive Statements SINUS RHYTHM Compared to ECG 11/13/2024 10:38:06 No significant changes Electronically Signed On 11-14-2024 14:41:48 CDT by Patricia Mccabe M.D. [id number] [id number]
[2024-11-13 13:03] LABS: Troponin 5 2HR 12.32 ng/L (0-10)
[2024-11-13 13:04] LABS: Troponin 5 2HR Delta -5.68 ABS# (0-10)
--- NOTE | 2024-11-13 13:17 | PM.HP ---
Providers/Chief Complaint Primary Care Provider: Homero Mesa MD Chief Complaint: SOB / Chest pain History of Present Illness Jose Antonio Orosco is a 79 year old female with past medical history of COPD/bronchiectasis who was recently diagnosed of COVID-19 an outpatient on 10/22 presents to the ER today because of difficulty in breathing, chest pain on deep inspiration, cough getting worse over the last 10 days. Patient was diagnosed of having a pneumonia for which she was started on Levaquin around a week ago. As her symptoms persisted and were worsening so she presented to the ER. In the ER she was found to be hypoxic requiring 2 L of oxygen supplementation. PE was ruled out with a negative CTA. Hospitalist service was consulted for further recommendations and management. Review of Systems General: Reports: 10 or more systems reviewed and unremarkable except in HPI and below Const: Denies: fever(s), chills, body aches, change in appetite, change in weight, malaise, night sweats, diaphoresis, change in sleep pattern, daytime sleepiness or snoring Eyes: Denies: change in vision, blurry vision, photophobia, eye discomfort or eye discharge ENMT: Denies: throat pain, enlarged tonsils, hoarseness, mouth pain, oral sores, dry mouth, tinnitus, nasal congestion or post nasal drip Card: Denies: chest pain, palpitations, irregular heart rhythm, edema, swelling of feet/ankles, lightheadedness, syncope, pre-syncope, dyspnea on exertion, orthopnea, leg pain with exertion or acrocyanosis Resp: Denies: dyspnea, productive cough, non-productive cough, wheezing, stridor, pain on inspiration, change in phlegm color, hemoptysis or chest congestion GI: Denies: abdominal pain, nausea, vomiting, hematemesis, coffee ground emesis, dysphagia, heartburn, diarrhea, constipation, bloating, GI cramping, change in bowel habits, pain on defecation, hematochezia or melena : Denies: flank pain, dysuria, urinary frequency, urinary urgency, urinary hesitancy, nocturia or hematuria Musc: Denies: neck pain, back pain, extremity pain, joint pain, joint swelling, joint redness, joint stiffness or limited range of motion Neuro: Denies: headache(s), numbness in extremities, weakness in extremities, sensory changes, lack of coordination, difficulty walking, frequent falls, dizziness, vertigo, confusion, Slurred speech present, difficulty communicating thoughts or seizure-like activity Psych: Denies: anxiety, depression, mood swings, panic attacks, hopelessness or irritability Endo: Denies: polyuria, polydipsia, tired all the time, cold intolerance, excessive sweating, flushing or heat intolerance Dennis/Lymph: Denies: easy bruising or easy bleeding All/Imm: Denies: tongue swelling, facial swelling or acute wheezing Medications/Allergies Home Medications ?Medication ?Instructions ?Recorded ?Confirmed ?Last Taken ?Type cholecalciferol (vitamin D3) 50 50 mcg PO DAILY 02/19/21 11/13/24 1 Month Ago History mcg (2,000 unit) capsule ~06/15/23 mucus clearing device #1 ea 07/13/21 11/13/24 Unknown Rx zinc gluconate 50 mg tablet 50 mg PO DAILY PRN other 02/06/22 11/13/24 6 Months Ago History ~01/14/23 Oxygen at 2L/min via nc #1 ea 11/14/23 11/13/24 Unknown Rx loratadine 10 mg tablet 10 mg PO DAILY 11/21/23 11/13/24 Unknown History levofloxacin 500 mg tablet 500 mg PO DAILY #10 tabs 11/05/24 11/13/24 11/13/24 08:00 Rx prednisone 20 mg tablet 40 mg (2 x 20 mg) PO DAILY #10 tabs 11/05/24 11/13/24 11/12/24 Rx isosorbide mononitrate 30 mg 30 mg PO DAILY 11/13/24 11/13/24 11/13/24 History tablet,extended release 24 hr vitamin B complex 1 tab PO DAILY 11/13/24 11/13/24 Unknown History Allergies Allergy/AdvReac Type Severity Reaction Status Date / Time No Known Allergies Allergy Verified 10/26/24 08:44 PFSH Acute PFSH: Medical History (Updated 11/13/24 @ 13:30 by Yovani Clifford MD) Recurrent suppurative otitis media of left ear without spontaneous rupture of tympanic membrane Benign positional vertigo Atherosclerosis of [place] coronary artery without angina pectoris Mitral regurgitation Left ventricular systolic dysfunction (LVSD) Difficulty clearing secretions COPD (chronic obstructive pulmonary disease) with emphysema At risk for aspiration Bronchiectasis COVID-19 Surgical History History of bladder surgery Bladder mesh placement - 02/10/19 History of appendectomy H/O: hysterectomy Family History Brother CAD (coronary artery disease) Cancer Stroke Daughter Hypertension Sister Hypertension Son Lung disease Denies family history of Diabetes Clotting disorder Dementia Hyperlipidemia Psychiatric illness Chronic kidney disease (CKD) Suicide Anesthesia complication Bleeding disorder Family history of premature coronary artery disease Social History Smoking and tobacco/nicotine status: never used tobacco/nicotine Second hand smoke exposure: Yes Alcohol intake: never Substance/Drug Use: never Additional social history: Goes by Nyla Vitals/I&O/Wt Last Vital Signs Temp 98.0 F 11/13/24 10:41 Pulse 84 11/13/24 13:00 Resp 18 11/13/24 11:11 BP 127/46 11/13/24 13:00 Pulse Ox 100 11/13/24 13:00 O2 Del Method Nasal Cannula 11/13/24 13:00 O2 Flow Rate 2 11/13/24 13:00 Weight last 48 hrs Weight 73.936 kg Physical Exam Narrative: General: No acute distress, AO x3, bitemporal wasting, sunken eyes HEENT: PERRLA, pupils bilaterally equal and reactive Chest: Bilateral bronchial breath sounds over lower lung lamar with occasional rhonchi, coarse crackles diffusely right more than left CVS: S1-S2 regular, no murmurs, no tachycardia, no gallops, no rubs Abdomen: Soft, nontender, no organomegaly, bowel sounds present Neuro: No focal deficits, no facial deformity, AO x3, power 5/5 in all limbs Data 11/13/24 11:03 11/13/24 11:03 Micro: Microbiology 11/13/24 12:40 Blood Culture - Preliminary Blood SPECIMEN COLLECTED 11/13/24 12:34 Blood Culture - Preliminary Blood SPECIMEN COLLECTED A&P Assessment and plan 1. Acute hypoxic respiratory failure: Acute hypoxic respiratory failure suspect in setting of COPD exacerbation due to recent COVID-19, postviral pneumonia. CTA chest results appreciated. Consistent with multifocal pneumonia. No PE. Ox supplementation keeping saturation over 90%. 2. COVID-19: Tested positive on 10/22. Does not need to be on isolation as patient is more than 14 days after positive study. 3. COPD (chronic obstructive pulmonary disease) with emphysema: Solu-Medrol 40 mg every 8 hours. Pulmicort twice daily, DuoNeb every 6 hours. 4. Community acquired pneumonia: With failure of outpatient treatment with Levaquin. Check sputum culture, urine Legionella, bacterial antigen, MRSA swab. For now start on IV vancomycin and Zosyn along with azithromycin for atypical coverage. If MRSA swab negative will discontinue vancomycin. She is at high risk of aspiration because of GERD. Will continue to monitor. Speech evaluation 5. Failure of outpatient treatment: 6. GERD (gastroesophageal reflux disease): Plan: Cardiac diet CODE STATUS: Discussed in detail with the patient. Send the daughters will be DPOA. DNR/DNI Protonix for PUD prophylaxis Heparin for DVT prophylaxis PDMP PDMP Reviewed: Not Reviewed Attestations Medical Necessity Statement*: Admission for the 2 midnights for management of hypoxic respiratory failure in setting of COPD exacerbation, recent COVID-19, community-acquired pneumonia with concerns of failure to outpatient treatment Diagnoses Acute hypoxic respiratory failure J96.01 COVID-19 U07.1 COPD (chronic obstructive pulmonary disease) with emphysema J43.9 Community acquired pneumonia J18.9 Failure of outpatient treatment Z78.9 GERD (gastroesophageal reflux disease) K21.9
[2024-11-13] MEDS: cefTRIAXone 1,000 mg SDV 1000 MG IVP (13:21)
[2024-11-13 13:49] LABS: Lactic Sepsis W/Reflex 2.2 mmol/L (0.5-2.2)
--- NOTE | 2024-11-13 13:54 | PHA.VACGOAL ---
Vancomycin Goal - Goal Vancomycin Goal:: 15-20 mg/L Vancomycin Indication:: Pneumonia - Therapy Current therapy:: Pip/Tazo Day of therpy:: Day [1]of [] . Actual body weight (kg): 73.936 kg - Data Labs: WBC 14.21 10^3/uL (3.29-11.43) H 11/13/24 11:03 RBC 4.16 10^6/uL (3.85-5.65) 11/13/24 11:03 Hgb 12.40 g/dL (11.27-16.99) 11/13/24 11:03 Hct 38.6 % (36-47) 11/13/24 11:03 MCV 92.8 fl (85-98) 11/13/24 11:03 MCH 29.8 pg (27-33) 11/13/24 11:03 MCHC 32.1 g/dL (30-55) 11/13/24 11:03 RDW 14.4 % (12.1-15.1) 11/13/24 11:03 Sodium 136 mmol/L (136-145) 11/13/24 11:03 Potassium 3.8 mmol/L (3.5-5.1) 11/13/24 11:03 Chloride 96 mmol/L (98-107) L 11/13/24 11:03 Carbon Dioxide 22 mmol/L (22-29) 11/13/24 11:03 Anion Gap 21.8 (5-19) H 11/13/24 11:03 BUN 10 mg/dL (8-23) 11/13/24 11:03 Creatinine 0.8 mg/dL (0.5-0.9) 11/13/24 11:03 GFR Calculation Not Reportable 11/13/24 11:03 Treatment plan:: new consult Regimen:: New start vancomycin for pneumonia. Started on maintenance dose of 750 mg q12h.
[2024-11-13 13:55] LABS: Reflex Lactate Order REFLEX LACTIC ORDERD
[2024-11-13 14:12] LABS: Procalcitonin 0.07 ng/mL (0-0.5)
--- NOTE | 2024-11-13 14:25 | PC.NURSE ---
fluids delayed d/t bolus infusing at time of order
[2024-11-13 14:45] LABS: Lactic Acid level (Lactate) 0.9 mmol/L (0.5-2.2)
[2024-11-13 15:41] LABS: Estmated Average Glucose 126; Hemoglobin A1C 6.0 % (4.0-6.0)
[2024-11-13] MEDS: methylPREDNISolone sod succ 40 mg/mL INJ IVP ×2 (16:02→21:03)
[2024-11-13] MEDS: heparin 5,000 unit/mL INJ 1 mL 5000 UNIT SUBCUT (16:02)
[2024-11-13] MEDS: pantoprazole 40 mg SDV IVP (16:03)
[2024-11-13 16:09] LABS: Iron 26 ug/dL (37-145); Thyroid Stimulating Hormone 3.83 uIU/mL (0.27-4.20); Total Iron Binding Capacity 251 mcg/dl; Unsaturated Iron Binding 225 ug/dL (112-347); Vitamin B12 875 pg/mL (232-1245)
--- NOTE | 2024-11-13 16:32 | ECG_ITS ---
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 Measurements Intervals [place] Rate: 82 P: 65 [place]: 170 QRS: 52 QRSD: 86 T: 53 QT: 355 QTc: 415 Interpretive Statements SINUS RHYTHM Compared to ECG 11/13/2024 12:48:40 No significant changes Electronically Signed On 11-14-2024 14:40:43 CDT by Patricia Mccabe M.D. [id number] [id number]
[2024-11-13] MEDS: piperacillin-tazobactam 3.375 GM in sodium chloride 0.9% (plus) 50 ML IV ×2 (18:29→23:55)
[2024-11-13 19:23] LABS: Troponin 5 6HR 14.46 ng/L (0-10)
[2024-11-13 19:24] LABS: Troponin 5 6HR Delta -3.54 ng/L (0-12)
[2024-11-13 22:43] LABS: MRSA PCR OZH (swab) NOT DETECTED (Not Detecte)
[2024-11-14] VITALS (12 sets, daily range): BP systolic 116–143; BP diastolic 54–85; PULSE 63–92; RESP 15–18; TEMP 36.3–36.8; O2SAT 92–99
[2024-11-14] MEDS: methylPREDNISolone sod succ 40 mg/mL INJ IVP ×3 (02:17→21:36)
[2024-11-14 04:19] LABS: Hematocrit 31.7 % (36-47); Hemoglobin 10.20 g/dL (11.27-16.99); Mean Corpuscular HGB Conc 32.2 g/dL (30-55); Mean Corpuscular Hemoglobin 29.9 pg (27-33); Mean Corpuscular Volume 93.0 fl (85-98); Nucleated Red Blood Cells % 0 %; Platelet Count 390 10^3/cmm (157-399); Red Blood Count 3.41 10^6/uL (3.85-5.65); White Blood Count 9.29 10^3/uL (3.29-11.43)
[2024-11-14 04:40] LABS: Procalcitonin 0.06 ng/mL (0-0.5)
[2024-11-14 04:48] LABS: Cholesterol 156 mg/dL (0-200); HDL Cholesterol 46 mg/dL (60-100); Triglycerides 67 mg/dL (0-150)
[2024-11-14 04:49] LABS: Alanine Aminotransferase 19 U/L (0-33); Albumin Level 3.1 g/dL (3.5-5.2); Alkaline Phosphatase 97 U/L (35-105); Anion Gap 18.3 (5-19); Aspartate Amino Transferase 14 U/L (0-32); Blood Urea Nitrogen 9 mg/dL (8-23); Calcium 8.6 mg/dL (8.5-10.5); Carbon Dioxide 21 mmol/L (22-29); Chloride 99 mmol/L (98-107); Creatinine Clr Calc Pharmacy 59.3594; Globulin 3.7 g/dL (1.3-4.6); Glucose 218 mg/dL (65-115); Magnesium 2.4 mg/dL (1.7-2.3); Osmolality Calculated 283 mOsm/kg (285-295); Potassium 4.3 mmol/L (3.5-5.1); Sodium 134 mmol/L (136-145); Total Protein 6.8 g/dL (6.6-8.7)
[2024-11-14] MEDS: piperacillin-tazobactam 3.375 GM in sodium chloride 0.9% (plus) 50 ML IV ×3 (06:25→23:01)
--- NOTE | 2024-11-14 13:23 | P.PN_ITS ---
Subjective 2 Subjective: No acute events overnight. Patient has remained hemodynamically stable. Currently on room air. States she is feeling a lot better. Saturating more than 94%. Denies any nausea, vomiting, headache. States her chest pain on deep inspiration is resolving. Vitals/I&O/Wt Last Vital Signs Temp 97.6 F 11/14/24 08:00 Pulse 76 11/14/24 08:00 Resp 16 11/14/24 08:00 BP 123/85 11/14/24 08:00 Pulse Ox 96 11/14/24 08:00 O2 Del Method Room Air 11/14/24 08:00 O2 Flow Rate 2 11/14/24 03:03 11/13/24 11/14/24 11/14/24 22:59 06:59 14:59 Intake Total 1790 / 1790 297.5 / 2087.5 50 / 50 Balance 1790 / 1790 297.5 / 7.5 50 / 50 Weight last 48 hrs Weight 78.653 kg Weight 74.049 kg Weight 73.936 kg Physical Exam 2 Narrative: General: No acute distress, AO x3, bitemporal wasting, sunken eyes HEENT: PERRLA, pupils bilaterally equal and reactive Chest: Bilateral bronchial breath sounds over lower lung lamar with occasional rhonchi, coarse crackles diffusely right more than left CVS: S1-S2 regular, no murmurs, no tachycardia, no gallops, no rubs Abdomen: Soft, nontender, no organomegaly, bowel sounds present Neuro: No focal deficits, no facial deformity, AO x3, power 5/5 in all limbs Data 11/14/24 02:19 11/14/24 02:19 Micro: Microbiology 11/13/24 12:34 Blood Culture - Preliminary Blood NEGATIVE TO DATE 11/13/24 12:40 Blood Culture - Preliminary Blood NEGATIVE TO DATE 11/13/24 12:16 Bacterial Antigens - Final Urine Kidney A&P Assessment and plan 1. Acute hypoxic respiratory failure: Acute hypoxic respiratory failure suspect in setting of COPD exacerbation due to recent COVID-19, postviral pneumonia. CTA chest results appreciated. Consistent with multifocal pneumonia. No PE. Ox supplementation keeping saturation over 90%. 2. COVID-19: Tested positive on 10/22. Does not need to be on isolation as patient is more than 14 days after positive study. 3. COPD (chronic obstructive pulmonary disease) with emphysema: Solu-Medrol 40 mg every 8 hours. Pulmicort twice daily, DuoNeb every 6 hours. 4. Community acquired pneumonia: With failure of outpatient treatment with Levaquin. Check sputum culture, urine Legionella, bacterial antigen, MRSA swab. For now start on IV vancomycin and Zosyn along with azithromycin for atypical coverage. If MRSA swab negative will discontinue vancomycin. She is at high risk of aspiration because of GERD. Will continue to monitor. Speech evaluation 5. Failure of outpatient treatment: 6. Gastroesophageal reflux disease without esophagitis: Plan: Cardiac diet CODE STATUS: Discussed in detail with the patient. Send the daughters will be DPOA. DNR/DNI Protonix for PUD prophylaxis Heparin for DVT prophylaxis Plan for the day: Sputum culture pending. MRSA swab negative. Blood cultures so far negative. Continue with Zosyn and azithromycin. Discontinue vancomycin. Oxygen supplementation keeping saturation 90%. Wean Solu-Medrol 40 mg 3 times daily IV. Continue with nebulization treatment. PDMP PDMP Reviewed: Not Reviewed Attestations 2 Medical Necessity Statement*: Requires further hospitalization for management of acute hypoxic respiratory failure in setting of COPD exacerbation in setting of recent COVID-19, community acquired pneumonia Diagnoses Acute hypoxic respiratory failure J96.01 COVID-19 U07.1 COPD (chronic obstructive pulmonary disease) with emphysema J43.9 Community acquired pneumonia J18.9 Laterality: unspecified laterality Failure of outpatient treatment Z78.9 Gastroesophageal reflux disease without esophagitis K21.9 Esophagitis presence: without esophagitis
[2024-11-14] MEDS: heparin 5,000 unit/mL INJ 1 mL 5000 UNIT SUBCUT (14:51)
[2024-11-14] MEDS: pantoprazole 40 mg SDV IVP (14:52)
[2024-11-15] VITALS (9 sets, daily range): BP systolic 117–177; BP diastolic 58–67; PULSE 70–90; RESP 15–16; TEMP 36.5–36.7; O2SAT 92–98
[2024-11-15] MEDS: heparin 5,000 unit/mL INJ 1 mL 5000 UNIT SUBCUT (02:38)
[2024-11-15 03:26] LABS: Hematocrit 31.1 % (36-47); Hemoglobin 10.20 g/dL (11.27-16.99); Mean Corpuscular HGB Conc 32.8 g/dL (30-55); Mean Corpuscular Hemoglobin 29.9 pg (27-33); Mean Corpuscular Volume 91.2 fl (85-98); Nucleated Red Blood Cells % 0 %; Platelet Count 413 10^3/cmm (157-399); Red Blood Count 3.41 10^6/uL (3.85-5.65); White Blood Count 16.48 10^3/uL (3.29-11.43)
[2024-11-15 03:55] LABS: Alanine Aminotransferase 30 U/L (0-33); Albumin Level 3.1 g/dL (3.5-5.2); Alkaline Phosphatase 112 U/L (35-105); Anion Gap 19.0 (5-19); Aspartate Amino Transferase 25 U/L (0-32); Blood Urea Nitrogen 12 mg/dL (8-23); Calcium 8.5 mg/dL (8.5-10.5); Carbon Dioxide 21 mmol/L (22-29); Chloride 105 mmol/L (98-107); Creatinine Clr Calc Pharmacy 59.3594; Globulin 3.4 g/dL (1.3-4.6); Glucose 207 mg/dL (65-115); Magnesium 2.3 mg/dL (1.7-2.3); Osmolality Calculated 298 mOsm/kg (285-295); Potassium 4.0 mmol/L (3.5-5.1); Sodium 141 mmol/L (136-145); Total Protein 6.5 g/dL (6.6-8.7)
[2024-11-15] MEDS: methylPREDNISolone sod succ 40 mg/mL INJ IVP (05:11)
[2024-11-15] MEDS: piperacillin-tazobactam 3.375 GM in sodium chloride 0.9% (plus) 50 ML IV (07:02)
--- NOTE | 2024-11-15 09:57 | PM.DCS ---
Discharge Providers Date of Admission: 11/13/24 14:08 Date of Discharge: November 15, 2024 Attending Provider at Admission: Yovani Clifford MD Attending Provider at Discharge: Yovani Clifford MD Primary Care Provider: Homero Mesa MD Diagnoses at Discharge Discharge Diagnosis 1. Acute hypoxic respiratory failure: 2. COVID-19: 3. COPD (chronic obstructive pulmonary disease) with emphysema: 4. Community acquired pneumonia: 5. Failure of outpatient treatment: 6. Gastroesophageal reflux disease without esophagitis: Reason for Visit Reason for Visit: SOB / Chest pain Hospital Course Hospital Course Jose Antonio Orosco is a 79 year old female with past medical history of COPD/bronchiectasis who was recently diagnosed of COVID-19 an outpatient on 10/22 presents to the ER today because of difficulty in breathing, chest pain on deep inspiration, cough getting worse over the last 10 days. Patient was diagnosed of having a pneumonia for which she was started on Levaquin around a week ago. As her symptoms persisted and were worsening so she presented to the ER. In the ER she was found to be hypoxic requiring 2 L of oxygen supplementation. PE was ruled out with a negative CTA. Patient was continued on nebulization treatment along with broad-spectrum IV antibiotics and steroids for hypoxia in setting of COPD exacerbation and possible committee acquired pneumonia. She responded well to the treatment and has been on room air for last 24 hours. Home O2 evaluation was done prior to discharge. She is been discharged on oral Augmentin and Levaquin to finish a 5-day course, nebulization treatment along with steroid taper. Physical Exam Narrative: General: No acute distress, AO x3, bitemporal wasting, sunken eyes HEENT: PERRLA, pupils bilaterally equal and reactive Chest: Bilateral bronchial breath sounds over lower lung lamar with occasional rhonchi, coarse crackles diffusely right more than left CVS: S1-S2 regular, no murmurs, no tachycardia, no gallops, no rubs Abdomen: Soft, nontender, no organomegaly, bowel sounds present Neuro: No focal deficits, no facial deformity, AO x3, power 5/5 in all limbs Discharge Data Studies Completed and Pending Completed Studies During Hospitalization Category Date Time Status CT angio chest PE protcl [id number] Stat Cat Scan 11/13/24 10:53 Completed XR chest 1V portable [id number] Stat Exams 11/13/24 10:32 Completed Pending at discharge Category Date Time Status Blood Culture Stat Lab 11/13/24 12:40 Results Complete Blood Count w/Auto AM LABS Lab 11/16/24 04:00 Ordered Comprehensive Metabolic Panel AM LABS Lab 11/16/24 04:00 Ordered Magnesium AM LABS Lab 11/16/24 04:00 Ordered Phosphorus AM LABS Lab 11/16/24 04:00 Ordered Sputum Culture and Gram Stain Stat Lab 11/13/24 13:17 Uncollected Radiology Impressions Chest X-Ray 11/13/24 10:32 IMPRESSION: Right lung opacities of unknown chronicity. May represent acute/subacute pneumonitis. Chest CTA 11/13/24 10:53 IMPRESSION: 1. No pulmonary embolism. 2. Progression of multi lobar consolidations with scattered nodules and cavitary nodules throughout both lungs which have progressed since 10/28/2024. Pneumonia and septic emboli should be considered. Due to the rapid progression thought less likely to be neoplastic. 3. Progression of consolidation RIGHT lower lobe is new since 10/28/2024. 4. Increase in mediastinal and hilar lymphadenopathy since 10/28/2024. Microbiology 11/13/24 12:34 Blood Blood Culture - Preliminary NEGATIVE TO DATE 11/13/24 12:40 Blood Blood Culture - Preliminary NEGATIVE TO DATE 11/13/24 12:16 Urine Kidney Bacterial Antigens - Final Laboratory Results WBC 16.48 10^3/uL (3.29-11.43) H 11/15/24 02:05 RBC 3.41 10^6/uL (3.85-5.65) L 11/15/24 02:05 Hgb 10.20 g/dL (11.27-16.99) L 11/15/24 02:05 Hct 31.1 % (36-47) L 11/15/24 02:05 MCV 91.2 fl (85-98) 11/15/24 02:05 MCH 29.9 pg (27-33) 11/15/24 02:05 MCHC 32.8 g/dL (30-55) 11/15/24 02:05 RDW 14.3 % (12.1-15.1) 11/15/24 02:05 Plt Count 413 10^3/cmm (157-399) H 11/15/24 02:05 MPV 10.3 fL (7.4-10.4) 11/15/24 02:05 Neut % (Auto) 89.1 % 11/15/24 02:05 Lymph % (Auto) 4.7 % 11/15/24 02:05 [place] % (Auto) 3.9 % 11/15/24 02:05 Eos % (Auto) 0.0 % 11/15/24 02:05 Baso % (Auto) 0.1 % 11/15/24 02:05 Neut # (Auto) 14.68 10^3/uL (1.8-7.7) H 11/15/24 02:05 Lymph # (Auto) 0.8 10^3/uL (0.8-4.8) 11/15/24 02:05 [place] # (Auto) 0.7 10^3/uL (0.2-0.9) 11/15/24 02:05 Eos # (Auto) 0.0 10^3/uL (0.0-0.8) 11/15/24 02:05 Baso # (Auto) 0.0 10^3/uL (0.0-0.1) 11/15/24 02:05 Nucleated RBC % (auto) 0 % 11/15/24 02:05 Nucleated RBCs # 0.0 /100WBC 11/15/24 02:05 PT 14.10 SECONDS (12.1-14.9) 11/13/24 11:03 INR 1.02 (0.8-1.2) 11/13/24 11:03 Sodium 141 mmol/L (136-145) 11/15/24 02:05 Potassium 4.0 mmol/L (3.5-5.1) 11/15/24 02:05 Chloride 105 mmol/L (98-107) 11/15/24 02:05 Carbon Dioxide 21 mmol/L (22-29) L 11/15/24 02:05 Anion Gap 19.0 (5-19) 11/15/24 02:05 BUN 12 mg/dL (8-23) 11/15/24 02:05 Creatinine 0.7 mg/dL (0.5-0.9) 11/15/24 02:05 GFR Calculation Not Reportable 11/15/24 02:05 Glucose 207 mg/dL (65-115) H 11/15/24 02:05 Estimat Average Glucose 126 11/13/24 11:03 Hemoglobin A1c 6.0 % (4.0-6.0) 11/13/24 11:03 Calculated Osmolality 298 mOsm/kg (285-295) H 11/15/24 02:05 Lactic Acid 2.2 mmol/L (0.5-2.2) 11/13/24 11:03 Lactic Acid (Sepsis) 0.9 mmol/L (0.5-2.2) 11/13/24 14:13 Calcium 8.5 mg/dL (8.5-10.5) 11/15/24 02:05 Phosphorus 2.5 mg/dL (2.5-4.5) 11/15/24 02:05 Magnesium 2.3 mg/dL (1.7-2.3) 11/15/24 02:05 Iron 26 ug/dL (37-145) L 11/13/24 11:03 TIBC 251 mcg/dl 11/13/24 11:03 % Saturation 10.3 % (20-50) L 11/13/24 11:03 Unsat Iron Binding 225 ug/dL (112-347) 11/13/24 11:03 Total Bilirubin 0.2 mg/dL (0.15-1.2) 11/15/24 02:05 AST 25 U/L (0-32) 11/15/24 02:05 ALT 30 U/L (0-33) 11/15/24 02:05 Alkaline Phosphatase 112 U/L (35-105) H 11/15/24 02:05 Troponin T Baseline 18 ng/L (0-10) H 11/13/24 11:03 Troponin T 120 Minute 12.32 ng/L (0-10) H 11/13/24 12:34 Delta Troponin T -5.68 ABS# (0-10) L 11/13/24 12:34 Troponin T Hi Sens 6Hr 14.46 ng/L (0-10) H 11/13/24 18:43 Troponin T Hi Sens 6Hr Delta -3.54 ng/L (0-12) L 11/13/24 18:43 NT-Pro-B Natriuret Pep 140 pg/mL (0-450) 11/13/24 11:03 Total Protein 6.5 g/dL (6.6-8.7) L 11/15/24 02:05 Albumin 3.1 g/dL (3.5-5.2) L 11/15/24 02:05 Globulin 3.4 g/dL (1.3-4.6) 11/15/24 02:05 Triglycerides 67 mg/dL (0-150) 11/14/24 02:19 Cholesterol 156 mg/dL (0-200) 11/14/24 02:19 LDL Cholesterol, Calc 97 mg/dL (50-129) 11/14/24 02:19 HDL Cholesterol 46 mg/dL (60-100) L 11/14/24 02:19 LDL/HDL Ratio 2.11 RATIO (0.00-3.22) 11/14/24 02:19 Cholesterol/HDL Ratio 3.39 mg/dL (0.0-4.40) 11/14/24 02:19 Vitamin B12 875 pg/mL (232-1245) 11/13/24 11:03 Folate 6.4 ng/mL (4.8-37.3) 11/14/24 02:19 Procalcitonin 0.06 ng/mL (0-0.5) 11/14/24 02:19 TSH 3.83 uIU/mL (0.27-4.20) 11/13/24 11:03 Nasal MRSA (PCR) Not detected (Not Detecte) 11/13/24 21:16 Vitals Last Vital Signs Temp 98.0 F 11/15/24 08:00 Pulse 77 11/15/24 08:20 Resp 16 11/15/24 08:09 BP 117/67 11/15/24 08:00 Pulse Ox 98 11/15/24 08:09 O2 Del Method Room Air 11/15/24 08:09 O2 Flow Rate 2 11/15/24 02:14 Discharge Plan Discharge Patient Disposition: Home Condition: Stable Prescriptions: New ipratropium-albuterol 0.5 mg-3 mg(2.5 mg base)/3 mL Solution For Nebulization 3 ml inhalation Q6H.RESP Qty: 180 0RF budesonide 0.5 mg/2 mL Suspension For Nebulization 0.5 mg inhalation BID.RESPIRATORY Qty: 60 0RF prednisone 10 mg tablet See Taper PO DIRECTED Qty: 42 0RF Taper: predniSONE 60-10 60 mg Daily for 2 Days and 0 Hour 50 mg Daily for 2 Days and 0 Hour 40 mg Daily for 2 Days and 0 Hour 30 mg Daily for 2 Days and 0 Hour 20 mg Daily for 2 Days and 0 Hour 10 mg Daily for 2 Days and 0 Hour Rx Instructions: see taper instructions levofloxacin 750 mg tablet 750 mg PO Q24H 5 Days Qty: 5 0RF amoxicillin-pot clavulanate 875-125 mg tablet 1 tab PO BID 5 Days Qty: 10 0RF Continued (DME) mucus clearing device Device See Rx Instructions .Route Qty: 1 0RF Rx Instructions: As directed loratadine 10 mg tablet 10 mg PO DAILY (DME) Oxygen at 2L/min via nc See Rx Instructions .Route .MEDSUPPLY Qty: 1 0RF Rx Instructions: To be used at night. Including oxygen tubing, concentrator and supplies cholecalciferol (vitamin D3) 50 mcg (2,000 unit) capsule 50 mcg PO DAILY zinc gluconate 50 mg tablet 50 mg PO DAILY PRN (Reason: other) vitamin B complex Tablet 1 tab PO DAILY Held isosorbide mononitrate 30 mg tablet extended release 24 hr 30 mg PO DAILY Hold Instructions: Resume on 12/06/24. Restart once BP over 140/90 mmhg Discontinued prednisone 20 mg tablet 40 mg PO DAILY Qty: 10 0RF levofloxacin 500 mg tablet 500 mg PO DAILY Qty: 10 0RF Discharge Order = DC NOW: Discharge Order (Routine); Ordered 11/15/24 Ordered By: Yovani Clifford Referrals: Homero Mesa MD [Primary Care Provider, Family Practice] - 4-7 days Referral Note: We have notified your physician's clinic of the need for a follow-up appointment to be scheduled. If you have not heard from them within the next 2 business days, please call them directly. Patient Instructions: Prednisone (By mouth), Amoxicillin/Clavulanate Potassium (By mouth), Levofloxacin (By mouth), Budesonide (By breathing), Ipratropium/Albuterol (By breathing), Community Acquired Pneumonia (DC), COPD Stoplight, Opioid Safety, Patient Portal & Wanda Instructions Discharge Attestations Time Spent in Discharge Care*: greater than 30 min Specific Discharge Activities: educating patient, educating and/or supporting family/caregiver, discussing with pcp/other providers, discussing with case planner/social workers/dc planners, documenting/other paperwork and evaluating patient/reviewing data Status at Discharge: Cognitive status at discharge: cognitively intact, Behavioral status at discharge: cooperative, Functional status at discharge: independent ambulation, Overall status at discharge: patient is back to baseline Quality Metrics Clinical Quality Measures [ No reported AMI, CVA or VTE this stay] Coding Level of Care Code 19363 Total time (in minutes) for Discharge: 65 Diagnoses Acute hypoxic respiratory failure J96.01 COVID-19 U07.1 COPD (chronic obstructive pulmonary disease) with emphysema J43.9 Community acquired pneumonia J18.9 Laterality: unspecified laterality Failure of outpatient treatment Z78.9 Gastroesophageal reflux disease without esophagitis K21.9 Esophagitis presence: without esophagitis
--- NOTE | 2024-11-15 12:18 | PC.NURSE ---
Patient Discharge Vitals taken helped into clothes and gathered belongings daughter came to pick IV removed.
== END 2024-11-15 12:20 | disposition home or self-care (01) | DRG 193 ==
LOC: ER 13:15 → MEDSURG 14:08
PROVIDERS: Admitting Provider Student in an Organized Health Care Education/Training Program; Emergency Provider Emergency Medicine; PCP Family Medicine; Visit Provider Student in an Organized Health Care Education/Training Program
DX: J18.9 Pneumonia, unspecified organism (principal); J96.01 Acute respiratory failure with hypoxia; J44.1 Chronic obstructive pulmonary disease with (acute) exacerbation; J44.0 Chronic obstructive pulmonary disease with (acute) lower respiratory infection; K21.9 Gastro-esophageal reflux disease without esophagitis; J47.9 Bronchiectasis, uncomplicated; H81.10 Benign paroxysmal vertigo, unspecified ear; I25.10 Atherosclerotic heart disease of native coronary artery without angina pectoris; I34.0 Nonrheumatic mitral (valve) insufficiency; Z86.16 Personal history of COVID-19
CPT/HCPCS: 36415; 71045; 71275; 80053; 80061; 82607; 82746; 83036; 83540; 83550; 83605; 83735; 83880; 84100; 84145; 84443; 84484; 85025; 85610; 86403; 87040; 92523; 92610; 93005; 94640; 94664; 94760; 96365; 96367; 96372; 96375; 99285; J0456; J0696; J1644; J2270; J2405; J2470; J2543; J2919; J3373; J7030; J7050; J7626; J9999; Q0144